=== PATIENT | female | born 1985 | race Caucasian/White ===

== ENCOUNTER 2021-08-29 09:26 | Outpatient (REF) | payer OTHER, SELFPAY ==
[2021-08-29 11:51] LABS: MANUAL DIFF FLAG NO
[2021-08-29 12:17] LABS: Basophils Absolute Auto 0.1 X10*3/uL (0.0-0.2); Basophils Percent Auto 0.8 % (0-2); Eosinophils Absolute Auto 0.1 X10*3/uL (0.0-0.4); Eosinophils Percent Auto 1.2 % (0-4); Hematocrit 39.9 % (37.0-47.0); Imm Gran Abs Auto 0.02 X10*3/uL (0.00-0.03); Imm Gran Pct Auto 0.3 % (0.0-0.4); Lymphocytes Absolute Auto 1.6 X10*3/uL (1.2-4.9); Lymphocytes Percent Auto 26.7 % (20-40); Mean Corpuscular HGB Conc 35.1 g/dl (31.0-35.0); Mean Corpuscular Hemoglobin 31.9 pg (27.0-33.0); Mean Corpuscular Volume 90.9 fL (80.0-98.0); Mean Platelet Volume 10.2 fL (9.4-12.3); Monocytes Absolute Auto 0.4 X10*3/uL (0.1-1.2); Neutrophils Absolute Auto 3.8 x10*3/uL (2.0-8.3); Platelet Count 253 X10*3/uL (160-400); Red Blood Count 4.39 X10*6/uL (4.20-5.50); Red Cell Distribution Width 11.7 % (11.0-16.0)
[2021-08-29 12:35] LABS: Alanine Aminotransferase 27 U/L (0-31); Albumin Level 4.1 g/dL (3.5-5.0); Alkaline Phosphatase 107 U/L (39-117); Anion Gap 12 (12-20); Aspartate Amino Transferase 18 U/L (5-31); Bilirubin Total 0.2 mg/dL (0.0-1.0); Blood Urea Nitrogen 11 mg/dL (9-16); C Reactive Protein 0.17 mg/dL (< or = 0.50); Calcium 9.8 mg/dL (8.4-10.2); Carbon Dioxide 26 mmol/L (22-29); Chloride 109 mmol/L (96-108); Estimated Glomerular Filt Rate > 60; Glucose Random 107 mg/dL (60-115); Potassium 4.2 mmol/L (3.3-5.1); Sodium 143 mmol/L (135-145); Total Protein 6.8 g/dL (6.5-8.0)
[2021-08-29 12:52] LABS: Erythrocyte Sedimentation Rate 12 MM/HR (0-20)
[2021-08-29 12:54] LABS: Creatinine Urine 141.81 mg/dL; Microalbum/Creatinine Ratio Ur 4.2 ug/mg cr
[2021-08-29 12:58] LABS: TSH reflex Free T4 0.65 uIU/mL (0.32-4.0)
== END 2021-08-29 09:27 | disposition home or self-care (01) ==
LOC: HO.LAB 09:26
PROVIDERS: Visit Provider Internal Medicine Rheumatology
DX: M35.2 Behcet's disease (principal); R63.5 Abnormal weight gain; Z79.899 Other long term (current) drug therapy
CPT/HCPCS: 36415; 80053; 82043; 84443; 85025; 85652; 86140; 99212

== ENCOUNTER 2021-10-05 14:43 | Emergency (ER) | payer OTHER, SELFPAY ==
--- NOTE | 2021-10-05 | ECG_ITS ---
Test Reason : CHEST PAIN Blood Pressure : / mmHG Vent. Rate : 086 BPM Atrial Rate : 086 BPM P-R Int : 130 ms QRS Dur : 090 ms QT Int : 368 ms P-R-T Axes : 018 -02 004 degrees QTc Int : 440 ms Normal sinus rhythm Normal ECG No previous ECGs available Referred By: Generic ED Physician Electronically Signed By:Jerel Tracy
[2021-10-05 14:46] VITALS: BP 145/88; PULSE 85; RESP 20; TEMP 36.3; O2SAT 95; BMI 41.0
[2021-10-05 15:13] LABS: MANUAL DIFF FLAG NO
[2021-10-05 15:19] LABS: Basophils Percent Auto 0.7 % (0-2); Eosinophils Absolute Auto 0.3 X10*3/uL (0.0-0.4); Eosinophils Percent Auto 4.5 % (0-4); Hematocrit 39.6 % (37.0-47.0); Imm Gran Abs Auto 0.01 X10*3/uL (0.00-0.03); Imm Gran Pct Auto 0.2 % (0.0-0.4); Lymphocytes Absolute Auto 1.8 X10*3/uL (1.2-4.9); Lymphocytes Percent Auto 29.5 % (20-40); Mean Corpuscular HGB Conc 35.4 g/dl (31.0-35.0); Mean Corpuscular Hemoglobin 31.8 pg (27.0-33.0); Mean Platelet Volume 9.9 fL (9.4-12.3); Monocytes Absolute Auto 0.3 X10*3/uL (0.1-1.2); Monocytes Percent Auto 5.6 % (2-11); Neutrophils Absolute Auto 3.6 x10*3/uL (2.0-8.3); Neutrophils Percent Auto 59.5 % (45-73); Platelet Count 238 X10*3/uL (160-400); Red Cell Distribution Width 11.9 % (11.0-16.0)
[2021-10-05 15:32] LABS: Anion Gap 11 (12-20); Blood Urea Nitrogen 14 mg/dL (9-16); Calcium 9.3 mg/dL (8.4-10.2); Carbon Dioxide 26 mmol/L (22-29); Chloride 107 mmol/L (96-108); Estimated Glomerular Filt Rate > 60; Glucose Random 147 mg/dL (60-115); Potassium 3.7 mmol/L (3.3-5.1); Sodium 140 mmol/L (135-145)
[2021-10-05 15:34] LABS: Troponin-I High Sensitivity < 3.5 ng/L (<3.5-17.0)
== END 2021-10-05 20:14 | disposition left against medical advice (07) ==
LOC: HO.ED 20:12
PROVIDERS: Emergency Provider Emergency Medicine
DX: R42 Dizziness and giddiness (principal); I10 Essential (primary) hypertension; R20.2 Paresthesia of skin; F17.210 Nicotine dependence, cigarettes, uncomplicated
CPT/HCPCS: 36415; 80048; 84484; 85025; 93005; 99283

== ENCOUNTER → 2021-12-05 09:05 | Outpatient (BNVA) | payer OTHER, SELFPAY | PROVIDERS: PCP Internal Medicine; Visit Provider Internal Medicine Rheumatology | DX: M35.2 Behcet's disease (principal); Z79.899 Other long term (current) drug therapy | CPT/HCPCS: 99212 ==

== ENCOUNTER 2022-10-22 21:14 | Emergency (ER) | payer OTHER, SELFPAY ==
[2022-10-22 21:28] VITALS: BP 120/92; BP 129/70; PULSE 75; PULSE 95; RESP 16; TEMP 36.4; O2SAT 95; BMI 37.6
[2022-10-22 21:32] VITALS: BP 129/70; PULSE 75; RESP 16; TEMP 36.4; O2SAT 95
--- NOTE | 2022-10-22 21:34 | PC.NURSE ---
Pt presents to ER via EMS after an accidental overdose. 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 Pt does not have a primary care or orthopedic doctor at this time and did not have pain medications. Pt purchased medication from the street. Pt was told pill was 30mg percocet, which she cut in half and took. Pt stated her normal dose of percocet would be 5mg. Pt also self medicates with cannabis, denies other drug use. After pt took medication, she became flushed, lightheaded, and nauseas. Pt remembers her boyfriend stating she didn't look well then pt lost consciousness while in bed, denies headstrike. PD administered 4mg narcan IN, and rescue breathing. Pt woke up, A&Ox4, GCS 15, with warm, dry skin. Pt presented to ED A&Ox4, GCS 15. Pt is speaking in full sentences, respirations are even. Pt does say she is nauseas and likely dehydrated. Pt resting in bed at this time, waiting ED provider.
[2022-10-22] MEDS: LORazepam 1 MG TABLET PO (21:54)
[2022-10-22] MEDS: Naloxone HCl Nasal TAKE HOME 4 MG SPRAY 8 MG NOSTRILALT (21:54)
[2022-10-22] MEDS: Ondansetron ODT 4 MG TAB.RAPDIS TRANSLINGU (21:54)
--- NOTE | 2022-10-22 21:55 | ED.OVERDOSE ---
HPI - Overdose General Chief Complaint: Overdose Stated Complaint: OVERDOSE 4MG NARCAN Time Seen by Provider: 10/22/22 21:16 Source: patient Mode of arrival: ambulatory Limitations: no limitations History of Present Illness HPI Narrative: chronic pain thought she was taking 5mg of oxycodone off the street but it could have been 15 or 30mg oxycodone overdose given 4mg narcan with good response complaint: accidental overdose Onset (ago): minute(s) (just prior to arrival ) Intent: other (pain control) Context: Accidental Overdose: other (pain control) Treatments Prior to Arrival: narcan (4mg) Related Data Home Medications Medication Instructions Recorded Confirmed cetirizine 10 mg tablet (Zyrtec) 10 mg PO DAILY 08/29/21 12/05/21 ibuprofen 800 mg tablet 800 mg PO BID 08/29/21 12/05/21 Previous Rx's Medication Instructions Recorded colchicine (gout) 0.6 mg tablet 0.6 mg PO DAILY #30 tabs 12/05/21 hydroxychloroquine 200 mg tablet 200 mg PO BID #60 tabs 12/05/21 buprenorphine 2 mg-naloxone 0.5 mg 1 film buccal BID PRN pain #6 ea 10/22/22 sublingual film (Suboxone) Allergies Allergy/AdvReac Type Severity Reaction Status Date / Time lactose [LACTOSE] Allergy Intermediate STOMACH Unverified 12/05/21 09:11 UPSET environmental allergies Allergy Nasal Verified 10/22/22 21:28 congestion Review of Systems Review of Systems: Constitutional : No Fever, No Chills ENT/Mouth : No Ear Pain, No Nasal Congestion, No sore throat Eyes: No Eye Pain, No Swelling, No Redness Cardiovascular : No Chest Pain, No SOB Respiratory : No Cough, No Sputum, No Dyspnea Gastrointestinal : pos Nausea, No Vomiting, No Diarrhea, No Hematochezia, No Melena Genitourinary : No Dysuria, No Urinary Frequency, No Hematuria Musculoskeletal : No Myalgias, pos joint pain Skin : No Skin Lesions, No rash Neuro : No Weakness, No Numbness, No Paresthesias, No Dizziness, No Headache Psych : positive Anxiety, no Depression, no SI/HI Heme/Lymph: No Lymphadenopathy Endocrine : No Polyuria, No Polydipsia All other systems reviewed and are negative PMFSH Past Medical History Attestation statement: The following information was validated with the patient. Medical History Asthma Behcet's disease Depression Social History Social History Household Members: Family Housing: Apartment Are you a primary plant health care technician to a significant other at home: No Do you presently have visiting nurse or other home services: No Alcohol intake: current Alcohol intake frequency: a few times a month Patient Tobacco Use Status: Current everyday Tobacco user Tobacco use type: Cigarette Cigarettes Per Day: 8 Years Smoked: since age 13 Smoked in Last 30 Days: Yes e-Cigarette/Vaping Use: Never Used Use of substances other than those prescribed or required for medical reasons: Yes Substance Use Type: Marijuana Substance Use Frequency: Daily Advance Directives: No Advance Directives Information Provided: No Patient : No service: No Current occupational status: employed 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 Oriented X3. No acute distress. tearful, anxious Eyes: Pupils equal, round and reactive to light. ENT: Pharynx normal. Neck: Normal inspection. Neck supple. CVS: Normal heart rate and rhythm. Pulses normal. Respiratory: No respiratory distress. Breath sounds normal. Abdomen: Soft and nontender. Skin: Skin warm and dry. Normal skin color. Normal skin turgor. Extremities: No lower extremity edema. No calf ttp Neuro: Oriented X 3. No motor deficit. No sensory deficit. Course Course Course Narrative: feels better 2+ hours no need for repeat narcan stable for DC. has narcan to go home with plan to follow up with [facility]. Medications Administered Discontinued Medications Generic Name Dose Route Start Last Admin Trade Name Freq PRN Reason Stop Dose Admin Lorazepam 1 mg 10/22/22 21:46 10/22/22 21:54 Lorazepam 1 Mg Tablet PO 10/22/22 21:47 1 mg ONCE ONE Administration Naloxone HCl 8 mg 10/22/22 21:46 10/22/22 21:54 Naloxone Hcl Nasal Take Home 4 Mg [place] NOSTRILALT 10/22/22 21:47 8 mg ONCE ONE Administration Ondansetron HCl 4 mg 10/22/22 21:46 10/22/22 21:54 Ondansetron Odt 4 Mg Tab.Elinor KENDRICK 10/22/22 21:47 4 mg ONCE ONE Administration Medical Decision Making Medical Decision Making MDM Narrative: 37 yo female with Behcet, chronic pain here with accidental overdose deals with chronic pain in R shoulder and tonight it was worse than usual - took what she thought was 5mg oxycodone off street and thinks it was 30 or 15 and overdosed - passed out no trauma given 4mg narcan with good response. she would be interested in some form of treatment at [facility] so that this does not happen again. she would consider suboxone for pain so she does not overdose again. I can refer her and start her on a small Rx to go home with starting tomorrow since she rarely uses it until she gets appointment. Differential Diagnosis Differential Diagnoses: The differential diagnosis associated with the presentation includes overdose, opiate dependence, chronic pain Admission/Observation Consideration of admission/observation: Escalation of care including admission/observation considered no need for repeat narcan can be sent home with take home narcan plan to follow up in [facility] Independent Historian Clinical information obtained from an independent historian. History obtained from or confirmed by: EMS External Record Review External record reviewed: Office record Prescription Management I considered prescription management with: Pain Medication (suboxone) and Other Social Determinants Patient?s care significantly limited by Social Determinants of Health including: Other Social Determinant of Health Discharge Plan Discharge Clinical Impression: Drug overdose Patient Disposition: Home, Self-Care Instructions: Adult Overdose (ED) Additional Instructions: carry narcan with you do not start suboxone for 24 hours you will precipitate withdrawal - follow up with [facility] as soon as possible. return for numbness, weakness, confusion, chest pain or trouble breathing. Prescriptions: New buprenorphine-naloxone [Suboxone] 2-0.5 mg film 1 film buccal BID PRN (Reason: pain) Qty: 6 0RF Rx Instructions: place 1 strip/tab under (each) side of tongue No Action ibuprofen 800 mg tablet 800 mg PO BID cetirizine [Zyrtec] 10 mg tablet 10 mg PO DAILY hydroxychloroquine 200 mg tablet 200 mg PO BID Qty: 60 1RF colchicine (gout) 0.6 mg tablet 0.6 mg PO DAILY Qty: 30 5RF Referrals: Martha Warren CNP [Nurse Practitioner] - (call tomorrow for any provider in group )
== END 2022-10-22 23:42 | disposition home or self-care (01) ==
PROVIDERS: Emergency Provider Emergency Medicine
DX: T40.2X1A Poisoning by other opioids, accidental (unintentional), initial encounter (principal); Y92.9 Unspecified place or not applicable; F17.210 Nicotine dependence, cigarettes, uncomplicated; Z71.6 Tobacco abuse counseling; Z79.899 Other long term (current) drug therapy
CPT/HCPCS: 99283; 99285

== ENCOUNTER 2022-10-26 17:25 | Inpatient (IN) | payer OTHER, SELFPAY ==
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
--- NOTE | 2022-10-26 18:27 | ECG_ITS ---
Test Reason : POLYSUB Blood Pressure : / mmHG Vent. Rate : 086 BPM Atrial Rate : 086 BPM P-R Int : 124 ms QRS Dur : 084 ms QT Int : 378 ms P-R-T Axes : 041 008 032 degrees QTc Int : 452 ms Normal sinus rhythm with sinus arrhythmia Normal ECG When compared with ECG of 05-OCT-2021 14:50, No significant change was found Referred By: Angel Champion Electronically Signed By:Jerel Tracy
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
--- NOTE | 2022-10-26 18:39 | MHC.EDTECH ---
tim pT for EKG but I was inform by another staff she went to the pod .
[2022-10-26 18:43] VITALS: BP 151/114; PULSE 130; RESP 22; TEMP 36.6; O2SAT 97; BMI 38.8
[2022-10-26 19:16] LABS: MANUAL DIFF FLAG NO
[2022-10-26 19:19] LABS: Basophils Absolute Auto 0.1 X10*3/uL (0.0-0.2); Basophils Percent Auto 0.6 % (0-2); Eosinophils Percent Auto 0.3 % (0-4); Hematocrit 42.7 % (37.0-47.0); Hemoglobin 15.3 g/dl (12.0-16.0); Imm Gran Abs Auto 0.03 X10*3/uL (0.00-0.03); Imm Gran Pct Auto 0.3 % (0.0-0.4); Lymphocytes Absolute Auto 2.1 X10*3/uL (1.2-4.9); Lymphocytes Percent Auto 19.7 % (20-40); Mean Corpuscular HGB Conc 35.8 g/dl (31.0-35.0); Mean Corpuscular Hemoglobin 32.2 pg (27.0-33.0); Mean Corpuscular Volume 89.9 fL (80.0-98.0); Mean Platelet Volume 9.9 fL (9.4-12.3); Monocytes Absolute Auto 0.8 X10*3/uL (0.1-1.2); Monocytes Percent Auto 7.4 % (2-11); Neutrophils Absolute Auto 7.5 x10*3/uL (2.0-8.3); Neutrophils Percent Auto 71.7 % (45-73); Platelet Count 290 X10*3/uL (160-400); Red Blood Count 4.75 X10*6/uL (4.20-5.50); Red Cell Distribution Width 12.1 % (11.0-16.0); White Blood Count 10.4 X10*3/uL (4.8-10.8)
[2022-10-26 19:43] LABS: Acetaminophen LAB < 17 mcg/mL (<30); Salicylate < 5.0 mg/dL (15-30)
[2022-10-26 19:43] LABS: Alanine Aminotransferase 18 U/L (0-31); Albumin Level 4.3 g/dL (3.5-5.0); Alkaline Phosphatase 102 U/L (39-117); Anion Gap 16 (12-20); Aspartate Amino Transferase 16 U/L (5-31); Bilirubin Total 0.6 mg/dL (0.0-1.0); Blood Urea Nitrogen 15 mg/dL (9-16); Carbon Dioxide 21 mmol/L (22-29); Chloride 106 mmol/L (96-108); Creatinine Clr Calc Pharmacy 126.1; Estimated Glomerular Filt Rate > 60; Ethanol < 10 mg/dL; Glucose Random 146 mg/dL (60-115); Lipase 10 U/L (8-78); Potassium 3.8 mmol/L (3.3-5.1); Sodium 139 mmol/L (135-145); Total Protein 7.9 g/dL (6.5-8.0)
--- NOTE | 2022-10-26 19:57 | PC.NURSE ---
Pt alert and oriented calm and cooperative. Mother in law visiting.
[2022-10-26 22:43] LABS: Appearance Urine Clear; Color Urine Yellow; Glucose Urine UA Negative (Negative); Leukocyte Esterase Urine Trace (Negative); Nitrite Urine Negative (Negative); Specific Gravity - Urine 1.025 (1.005-1.025); UMIC TRIGGER UACC YES; Urine Blood Negative (Negative); Urine Ketones 15 mg/dL (Negative); Urine Protein 30 (1+) mg/dL (Neg-Trace)
[2022-10-26 22:48] LABS: Bacteria Urine 1+ (None Seen); RBC Urine 0-2 /HPF (0-2); WBC Urine 0-5 /HPF (0-5)
[2022-10-26 22:51] LABS: Amphetamine Screen Urine Not Detected (Not Detect); Barbiturates, Urine Not Detected (Not Detect); Benzodiazepines Screen Urine Not Detected (Not Detect); Cannabinoid Screen Urine POSITIVE (Not Detect); Cocaine Screen Urine POSITIVE (Not Detect); Fentanyl, urine POSITIVE (Not Detect); Opiate Screen Urine Not Detected (Not Detect); Phencyclidine Screen Urine Not Detected (Not Detect)
--- NOTE | 2022-10-27 03:18 | PC.NURSE ---
Pt ambulated with a steady gait. Pt requested and given blanket and pillow. Plan of care ongoing.
[2022-10-27 03:27] VITALS: BP 107/66; PULSE 69; RESP 17; TEMP 36.6; O2SAT 97
[2022-10-27] MEDS: Nicotine 21 MG PATCH.TD24 TRANSDERMA (10:35)
[2022-10-27 19:13] VITALS: BP 111/75; PULSE 93; RESP 18; TEMP 36.4; O2SAT 98
--- NOTE | 2022-10-27 19:58 | PC.NURSE ---
assumed care of patient at 1900 pt resting comfortably on stretcher in no apparent distress. will ctm
[2022-10-28 04:28] VITALS: BP 124/76; PULSE 89; RESP 18; TEMP 36.5; O2SAT 98
--- NOTE | 2022-10-28 06:01 | PC.NURSE ---
pt continues to rest comfortably on stretcher , respirations even and unlabored pt in no apparent distress. needs met and pt offers no current complaints
[2022-10-28] MEDS: Nicotine 21 MG PATCH.TD24 TRANSDERMA (07:08)
[2022-10-28 09:00] LABS: COVID-19 Test Negative (Negative); IDNOW Serial# 6674DD1D
--- NOTE | 2022-10-28 09:43 | PHA.MEDREC ---
Pharmacy Consult ? Medication Reconciliation Pharmacy has completed the medication reconciliation. Spoke with patient to confirm medications. She was prescribed suboxone 1 film BID prn however patient has only taken 1 dose so far and used 1/2 film only.
[2022-10-28 17:05] VITALS: BP 132/91; PULSE 94; RESP 18; TEMP 36.7; O2SAT 97
[2022-10-28 20:15] VITALS: BP 130/80; PULSE 68; RESP 18; TEMP 36.6; O2SAT 98
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
[2022-10-29 08:00] VITALS: BP 122/81; PULSE 60; RESP 16; TEMP 36.4; O2SAT 99
[2022-10-29] MEDS: Nicotine 21 MG PATCH.TD24 TRANSDERMA (08:59)
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
[2022-10-29 09:17] LABS: Estimated Average Glucose 91 mg/dL; Hemoglobin A1c % 4.8 %
[2022-10-29 09:53] LABS: Alanine Aminotransferase 12 U/L (0-31); Albumin Level 3.6 g/dL (3.5-5.0); Alkaline Phosphatase 76 U/L (39-117); Anion Gap 11 (12-20); Aspartate Amino Transferase 13 U/L (5-31); Bilirubin Total 0.4 mg/dL (0.0-1.0); Blood Urea Nitrogen 11 mg/dL (9-16); Calcium 9.1 mg/dL (8.4-10.2); Carbon Dioxide 23 mmol/L (22-29); Chloride 108 mmol/L (96-108); Cholesterol 140 mg/dL; Creatinine Clr Calc Pharmacy 140.1; Estimated Glomerular Filt Rate > 60; Glucose Fasting 93 mg/dL (60-99); HDL Cholesterol 38 mg/dL; LDL Cholesterol Calculated 89 mg/dl; Potassium 3.9 mmol/L (3.3-5.1); Sodium 138 mmol/L (135-145); Total Protein 6.6 g/dL (6.5-8.0); Triglycerides 67 mg/dL
[2022-10-29 10:15] LABS: Thyroid Stimulating Hormone 0.54 uIU/mL (0.32-4.0)
[2022-10-29 10:16] LABS: Folate 13.4 ng/mL (> or = 4.0)
[2022-10-29 21:00] VITALS: BP 157/84; PULSE 84; RESP 16; TEMP 36.5; O2SAT 98
[2022-10-29] MEDS: OXcarbazepine 300 MG TABLET PO (21:00)
[2022-10-29] MEDS: Docusate Sodium 100 MG CAPSULE PO (21:00)
[2022-10-30 08:57] VITALS: BP 127/83; PULSE 62; RESP 18; TEMP 36.7; O2SAT 98
[2022-10-30] MEDS: Nicotine 21 MG PATCH.TD24 TRANSDERMA (09:00)
--- NOTE | 2022-10-30 09:13 | P.PNPSI_ITS ---
Subjective Subjective Date of Service: 10/30/22 Reason For Visit: overdose Subjective Notes: 3 Day Interim History: Reviewed in team and Dr. Hernandez. Patient presents calm today. Does not have rapid or pressured speech. Patient stated, I'm doing a lot better then when I came in. I've been going to all the groups. I'm not interested in PHP. I want to go home and get a utility tractor operator to get my kids back. I want to start looking for work . When discussing substance abuse, pt stated, I want my kids more than using drugs. I might try going to [facility] and AA/NA meetings . Patient denies SI/HI/VH/AH. Medication Compliance: Yes Side effects from medications: No Attending Groups: Yes Review of Systems Constitutional: Reports as per HPI Eyes: Reports as per HPI Reports as per HPI Cardiovascular: Reports as per HPI Respiratory: Reports as per HPI Gastrointestinal: Reports as per HPI Genitourinary: Reports as per HPI Musculoskeletal: Reports as per HPI Skin/Breast: Reports as per HPI Reports as per HPI Psychiatric: Reports as per HPI Endocrine: Reports as per HPI Hematologic/Lymphatic: Reports as per HPI Allergic/Immunologic: Reports as per HPI Mental Status Exam Mental Status Exam Narrative: Pt is alert and oriented; behavior is cooperative and calm; patient is not in distress; dressed in casual attire; mood is described as good ; eye contact appropriate; Speech is normal rate, volume and prosody and not pressured; no psychomotor agitation/retardation present; thought process is organized and goal directed; Thought content is on tx; otherwise pertinent to relevant topics and without any delusional content, paranoid ideations or grandiosity; denies SI/HI. There is no evidence of perceptual disturbance. Patients insight and judgment are fair. Diagnostics Vital Signs (24Hr): Vital Signs - 24 hr 10/29/22 21:00 10/30/22 08:57 Temperature 97.7 F 98.0 F Pulse Rate 84 62 Respiratory Rate 16 18 Blood Pressure 157/84 H 127/83 Pulse Oximetry 98 98 Oxygen Delivery Method Room Air Room Air BMI result Body Mass Index 38.8 Labs 10/26/22 19:12 10/29/22 08:24 Labs: Laboratory Results - last 48 hr 10/29/22 10/29/22 10/29/22 08:24 08:24 08:24 Sodium 138 Potassium 3.9 Chloride 108 Carbon Dioxide 23 Anion Gap 11 L BUN 11 Creatinine 0.72 Estim Creat Clear Calc 140.1 Estimated GFR > 60 Fasting Glucose 93 Estimat Average Glucose 91 Hemoglobin A1c % 4.8 Calcium 9.1 D Total Bilirubin 0.4 AST 13 ALT 12 Alkaline Phosphatase 76 Total Protein 6.6 Albumin 3.6 Triglycerides 67 Cholesterol 140 LDL Cholesterol, Calc 89 HDL Cholesterol 38 Folate 13.4 TSH 0.54 Free T4 1.00 Imaging Radiology Impressions: ITS Impressions Hand X-Ray 10/27/22 11:02 IMPRESSION: Normal right hand. Face CT 10/27/22 11:25 IMPRESSION: 1. No acute intracranial process seen. 2. There is no maxillofacial, nasal or mandibular fracture. Head CT 10/27/22 11:25 IMPRESSION: 1. No acute intracranial process seen. 2. There is no maxillofacial, nasal or mandibular fracture. Medications Medications Current Medications Acetaminophen (Acetaminophen 325 Mg Tablet) 650 mg PO Q6H PRN PRN Reason: Headache/Pain Mild Scale (1-3) Al Hydroxide/Mg Hydroxide (Magnesium Hydrox/Alum Hydrox 30 Ml Oral.Susp) 30 ml PO Q6H PRN PRN Reason: Heartburn/Nausea Albuterol Sulfate (Albuterol Sulfate 90 Mcg 8 Gm Inhaler) 2 puff INHALE Q4H PRN PRN Reason: Shortness Of Breath Or Wheezing Docusate Sodium (Docusate Sodium 100 Mg Capsule) 100 mg PO BID PRN PRN Reason: Constipation Last Admin: 10/29/22 21:00 Dose: 100 mg Hydroxyzine HCl (Hydroxyzine Hcl 25 Mg Tablet) 25 mg PO Q6H PRN PRN Reason: Anxiety Loratadine (Loratadine 10 Mg Tablet) 10 mg PO DAILY PRN PRN Reason: Allergy Symptoms Magnesium Hydroxide (Milk Of Magnesia 30 Ml Oral.Susp) 30 ml PO DAILY PRN PRN Reason: Constipation Nicotine (Nicotine 21 Mg Patch.Td24) 21 mg TRANSDERMA DAILY [facility] Last Admin: 10/30/22 09:00 Dose: 21 mg Nicotine Polacrilex (Nicotine Polacrilex 2 Mg Gum) 4 mg BUCCAL Q2H PRN PRN Reason: Nicotine Cravings Oxcarbazepine (Oxcarbazepine 300 Mg Tablet) 300 mg PO BEDTIME [facility] Last Admin: 10/29/22 21:00 Dose: 300 mg Trazodone HCl (Trazodone Hcl 50 Mg Tablet) 50 mg PO BEDTIME MRX1 PRN PRN Reason: Insomnia Allergies Allergies Allergy/AdvReac Type Severity Reaction Status Date / Time environmental allergies Allergy Nasal Verified 10/22/22 21:28 congestion Assessment & Plan Assessment & Plan (1) MDD (major depressive disorder), recurrent episode: Status: Acute Code(s): F33.9 - Major depressive disorder, recurrent, unspecified (2) Behcet's disease: Status: Acute Code(s): M35.2 - Behcet's disease Plan Patient is a 37 year old female who self presented to [facility] reporting she was having a mental health crisis and having physical pain. Per crisis report, pt has vasculitis which flares up when she is stressed and recently bought Percocet on the street to help with the pain; it was Fentanyl and she overdosed unintentionally. 911 was called and DCF removed her children from the home. Plan: CV 15 minute safety checks Referral to outpatient psychiatrist Referral to PHP Referral to substance abuse treatment program? Start: Trileptal 300mg PO bedtime 10/30: Patient presents calm today. Does not have rapid or pressured speech. Patient stated, I'm doing a lot better then when I came in. I've been going to all the groups. I'm not interested in PHP. I want to go home and get a utility tractor operator to get my kids back. I want to start looking for work . When discussing substance abuse, pt stated, I want my kids more than using drugs. I might try going to [facility] [place] and AA/NA meetings . Continue current tx plan. Patient educated on: diagnosis, medication risk/benefits, substance abuse and therapeutic strategies Informed Consent: understands Reason for continued inpatient stay Substantial Risk for: med/psych decompensation Time Spent With Patient Time: Total time managing care of this patient today _30___ minutes.
[2022-10-30 19:40] VITALS: BP 143/81; PULSE 83; RESP 18; TEMP 36.2; O2SAT 100
[2022-10-30] MEDS: OXcarbazepine 300 MG TABLET PO (20:20)
[2022-10-30] MEDS: Docusate Sodium 100 MG CAPSULE PO (20:20)
[2022-10-31 07:00] VITALS: BMI 36.1
[2022-10-31 08:57] VITALS: BP 126/88; PULSE 74; RESP 18; TEMP 36.7; O2SAT 100
[2022-10-31] MEDS: Nicotine 21 MG PATCH.TD24 TRANSDERMA (08:59)
--- NOTE | 2022-10-31 09:17 | HO.PSYCHPN ---
Subjective Subjective Date of Service: 10/31/22 Reason For Visit: overdose Subjective Notes: 3 Day Interim History: Reviewed in team and Dr. Hernandez. Patient reports feeling fine today. Patient stated, I'm looking forward to going home and working on my resume. I'm going to meet with a electronics mechanic apprentice and also my therapist. I'm going to do what I can to get my children back . Patient reports she does not have any urges to use or suicidal thoughts . Patient denies SI/HI/VH/AH. Medication Compliance: Yes Side effects from medications: No Attending Groups: Yes Review of Systems Constitutional: Reports as per HPI Eyes: Reports as per HPI Reports as per HPI Cardiovascular: Reports as per HPI Respiratory: Reports as per HPI Gastrointestinal: Reports as per HPI Genitourinary: Reports as per HPI Musculoskeletal: Reports as per HPI Skin/Breast: Reports as per HPI Reports as per HPI Psychiatric: Reports as per HPI Endocrine: Reports as per HPI Hematologic/Lymphatic: Reports as per HPI Allergic/Immunologic: Reports as per HPI Mental Status Exam Mental Status Exam Narrative: Pt is alert and oriented; behavior is cooperative and calm; patient is not in distress; dressed in casual attire; mood is described as fine ; eye contact appropriate; Speech is normal rate, volume and prosody and not pressured; no psychomotor agitation/retardation present; thought process is organized and goal directed; Thought content is on tx; otherwise pertinent to relevant topics and without any delusional content, paranoid ideations or grandiosity; denies SI/HI. There is no evidence of perceptual disturbance. Patients insight and judgment are fair. Diagnostics Vital Signs (24Hr): Vital Signs - 24 hr 10/30/22 19:40 10/31/22 08:57 Temperature 97.2 F 98.0 F Pulse Rate 83 74 Respiratory Rate 18 18 Blood Pressure 143/81 H 126/88 Pulse Oximetry 100 100 Oxygen Delivery Method Room Air Room Air BMI result Body Mass Index 38.8 Labs 10/26/22 19:12 10/29/22 08:24 Labs: Laboratory Results - last 48 hr 10/29/22 10/29/22 10/29/22 08:24 08:24 08:24 Sodium 138 Potassium 3.9 Chloride 108 Carbon Dioxide 23 Anion Gap 11 L BUN 11 Creatinine 0.72 Estim Creat Clear Calc 140.1 Estimated GFR > 60 Fasting Glucose 93 Estimat Average Glucose 91 Hemoglobin A1c % 4.8 Calcium 9.1 D Total Bilirubin 0.4 AST 13 ALT 12 Alkaline Phosphatase 76 Total Protein 6.6 Albumin 3.6 Triglycerides 67 Cholesterol 140 LDL Cholesterol, Calc 89 HDL Cholesterol 38 Folate 13.4 TSH 0.54 Free T4 1.00 Imaging Radiology Impressions: ITS Impressions Hand X-Ray 10/27/22 11:02 IMPRESSION: Normal right hand. Face CT 10/27/22 11:25 IMPRESSION: 1. No acute intracranial process seen. 2. There is no maxillofacial, nasal or mandibular fracture. Head CT 10/27/22 11:25 IMPRESSION: 1. No acute intracranial process seen. 2. There is no maxillofacial, nasal or mandibular fracture. Medications Medications Current Medications Acetaminophen (Acetaminophen 325 Mg Tablet) 650 mg PO Q6H PRN PRN Reason: Headache/Pain Mild Scale (1-3) Al Hydroxide/Mg Hydroxide (Magnesium Hydrox/Alum Hydrox 30 Ml Oral.Susp) 30 ml PO Q6H PRN PRN Reason: Heartburn/Nausea Albuterol Sulfate (Albuterol Sulfate 90 Mcg 8 Gm Inhaler) 2 puff INHALE Q4H PRN PRN Reason: Shortness Of Breath Or Wheezing Docusate Sodium (Docusate Sodium 100 Mg Capsule) 100 mg PO BID PRN PRN Reason: Constipation Last Admin: 10/30/22 20:20 Dose: 100 mg Hydroxyzine HCl (Hydroxyzine Hcl 25 Mg Tablet) 25 mg PO Q6H PRN PRN Reason: Anxiety Loratadine (Loratadine 10 Mg Tablet) 10 mg PO DAILY PRN PRN Reason: Allergy Symptoms Magnesium Hydroxide (Milk Of Magnesia 30 Ml Oral.Susp) 30 ml PO DAILY PRN PRN Reason: Constipation Nicotine (Nicotine 21 Mg Patch.Td24) 21 mg TRANSDERMA DAILY [facility] Last Admin: 10/31/22 08:59 Dose: 21 mg Nicotine Polacrilex (Nicotine Polacrilex 2 Mg Gum) 4 mg BUCCAL Q2H PRN PRN Reason: Nicotine Cravings Oxcarbazepine (Oxcarbazepine 300 Mg Tablet) 300 mg PO BEDTIME [facility] Last Admin: 10/30/22 20:20 Dose: 300 mg Trazodone HCl (Trazodone Hcl 50 Mg Tablet) 50 mg PO BEDTIME MRX1 PRN PRN Reason: Insomnia Allergies Allergies Allergy/AdvReac Type Severity Reaction Status Date / Time environmental allergies Allergy Nasal Verified 10/22/22 21:28 congestion Assessment & Plan Assessment & Plan (1) MDD (major depressive disorder), recurrent episode: Status: Acute Code(s): F33.9 - Major depressive disorder, recurrent, unspecified (2) Behcet's disease: Status: Acute Code(s): M35.2 - Behcet's disease Plan Patient is a 37 year old female who self presented to [facility] reporting she was having a mental health crisis and having physical pain. Per crisis report, pt has vasculitis which flares up when she is stressed and recently bought Percocet on the street to help with the pain; it was Fentanyl and she overdosed unintentionally. 911 was called and DCF removed her children from the home. Plan: CV 15 minute safety checks Referral to outpatient psychiatrist Referral to PHP Referral to substance abuse treatment program? Trileptal 300mg PO bedtime 10/30: Patient presents calm today. Does not have rapid or pressured speech. Patient stated, I'm doing a lot better then when I came in. I've been going to all the groups. I'm not interested in PHP. I want to go home and get a electronics mechanic apprentice to get my kids back. I want to start looking for work . When discussing substance abuse, pt stated, I want my kids more than using drugs. I might try going to [facility] and AA/NA meetings . Continue current tx plan. 10/31: Patient reports feeling fine today. Patient stated, I'm looking forward to going home and working on my resume. I'm going to meet with a electronics mechanic apprentice and also my therapist. I'm going to do what I can to get my children back . Patient reports she does not have any urges to use or suicidal thoughts . Patient denies SI/HI/VH/AH. Pt will discharge tomorrow on 3 day. Patient educated on: diagnosis, medication risk/benefits, substance abuse and therapeutic strategies Informed Consent: understands Reason for continued inpatient stay Substantial Risk for: stable for discharge Time Spent With Patient Time: Total time managing care of this patient today _30___ minutes.
[2022-10-31 19:40] VITALS: BP 123/83; PULSE 64; RESP 18; TEMP 36.3; O2SAT 98
[2022-10-31] MEDS: OXcarbazepine 300 MG TABLET PO (20:56)
[2022-11-01] MEDS: Nicotine 21 MG PATCH.TD24 TRANSDERMA (07:53)
[2022-11-01 08:25] VITALS: BP 131/76; PULSE 70; RESP 16; TEMP 36.8; O2SAT 98
--- NOTE | 2022-11-01 08:55 | P.DS_ITS ---
DS: Providers Provider Date of Service: 11/01/22 Date of admission: 10/28/22 16:14 Date of discharge: 11/01/22 Primary care physician: Unknown Physician Admitting clinician: Earlene Alaniz Attending physician on admission: Alfredo Hernandez Attending physician on discharge: Devaughn Arauz Discharging clinician: Earlene Alaniz DS: Diagnosis Discharge Diagnosis (1) MDD (major depressive disorder), recurrent episode: Status: Acute (2) Behcet's disease: Status: Acute DS: Medications Discharge Medications Home Medications: Home Medications Medication Instructions Recorded Confirmed cetirizine 10 mg tablet (Zyrtec) 10 mg PO DAILY PRN Allergy Symptoms 08/29/21 10/28/22 ibuprofen 800 mg tablet 800 mg PO BID PRN Pain 08/29/21 10/28/22 albuterol sulfate 90 mcg/actuation 2 puff inhalation Q4-6H PRN 10/28/22 10/28/22 aerosol inhaler (Ventolin HFA) Shortness Of Breath Or Wheezing buprenorphine 2 mg-naloxone 0.5 mg 0.5 film buccal BID PRN pain 10/28/22 10/28/22 sublingual film (Suboxone) nicotine 14 mg/24 hr daily 1 patch topical DAILY PRN Nicotine 10/28/22 10/28/22 transdermal patch Cravings Previous Rx's Medication Instructions Recorded oxcarbazepine 300 mg tablet 300 mg PO BEDTIME 30 days #30 tabs 11/01/22 Mental Status Exam Mental Status Exam Narrative: Pt is alert and oriented; behavior is cooperative, friendly and calm; patient is not in distress; dressed in casual attire; mood is described as good ; eye contact appropriate; Speech is normal rate, volume and prosody and not pressured; no psychomotor agitation/retardation present; thought process is organized and goal directed; Thought content is on tx; otherwise pertinent to relevant topics and without any delusional content, paranoid ideations or grandiosity; denies SI/HI. There is no evidence of perceptual disturbance. Patients insight and judgment are fair. Data Data Completed and Pending Completed studies during hospitalization [Text1]: 10/26/22 10/26/22 10/26/22 19:11 19:12 19:12 WBC 10.4 RBC 4.75 Hgb 15.3 Hct 42.7 MCV 89.9 MCH 32.2 MCHC 35.8 H RDW 12.1 Plt Count 290 MPV 9.9 Immature Gran % (Auto) 0.3 Neut % (Auto) 71.7 Lymph % (Auto) 19.7 L Dickinson % (Auto) 7.4 Eos % (Auto) 0.3 Baso % (Auto) 0.6 Lymph # (Auto) 2.1 Dickinson # (Auto) 0.8 Eos # (Auto) 0.0 Baso # (Auto) 0.1 Abs Immat Gran (auto) 0.03 Absolute Neuts (auto) 7.5 Absolute Nucleated RBC 0.000 Nucleated RBC % (auto) 0.0 Sodium 139 Potassium 3.8 Chloride 106 Carbon Dioxide 21 L Anion Gap 16 BUN 15 Creatinine 0.80 Estim Creat Clear Calc 126.1 Estimated GFR > 60 Random Glucose 146 H Fasting Glucose Estimat Average Glucose Hemoglobin A1c % Calcium 10.0 D Total Bilirubin 0.6 AST 16 ALT 18 Alkaline Phosphatase 102 Total Protein 7.9 Albumin 4.3 Triglycerides Cholesterol LDL Cholesterol, Calc HDL Cholesterol Lipase 10 Folate TSH Free T4 Urine Color Urine Appearance Urine pH Ur Specific [place] Urine Protein Urine Glucose (UA) Urine Ketones Urine Blood Urine Nitrite Ur Leukocyte Esterase Urine RBC Urine WBC Ur Squamous Epith Cells Urine Bacteria Hyaline Casts Salicylates < 5.0 L Urine Opiates Screen Urine Fentanyl Screen Acetaminophen < 17 Ur Barbiturates Screen Ur Phencyclidine Scrn Ur Amphetamines Screen U Benzodiazepines Scrn Urine Cocaine Screen U Marijuana (THC) Screen Ethyl Alcohol < 10 COVID-19 ([facility]) COVID-19 Clin Com 10/26/22 10/26/22 10/28/22 22:28 22:28 08:27 WBC RBC Hgb Hct MCV MCH MCHC RDW Plt Count MPV Immature Gran % (Auto) Neut % (Auto) Lymph % (Auto) Dickinson % (Auto) Eos % (Auto) Baso % (Auto) Lymph # (Auto) Dickinson # (Auto) Eos # (Auto) Baso # (Auto) Abs Immat Gran (auto) Absolute Neuts (auto) Absolute Nucleated RBC Nucleated RBC % (auto) Sodium Potassium Chloride Carbon Dioxide Anion Gap BUN Creatinine Estim Creat Clear Calc Estimated GFR Random Glucose Fasting Glucose Estimat Average Glucose Hemoglobin A1c % Calcium Total Bilirubin AST ALT Alkaline Phosphatase Total Protein Albumin Triglycerides Cholesterol LDL Cholesterol, Calc HDL Cholesterol Lipase Folate TSH Free T4 Urine Color Yellow Urine Appearance Clear Urine pH 6.0 Ur Specific [place] 1.025 Urine Protein 30 (1+) H Urine Glucose (UA) Negative Urine Ketones 15 Urine Blood Negative Urine Nitrite Negative Ur Leukocyte Esterase Trace H Urine RBC 0-2 Urine WBC 0-5 Ur Squamous Epith Cells 6-10 Urine Bacteria 1+ Hyaline Casts 3-5 Salicylates Urine Opiates Screen Not Detected Urine Fentanyl Screen POSITIVE H Acetaminophen Ur Barbiturates Screen Not Detected Ur Phencyclidine Scrn Not Detected Ur Amphetamines Screen Not Detected U Benzodiazepines Scrn Not Detected Urine Cocaine Screen POSITIVE H U Marijuana (THC) Screen POSITIVE H Ethyl Alcohol COVID-19 ([facility]) Negative COVID-19 Clin Com See Note 10/29/22 10/29/22 10/29/22 08:24 08:24 08:24 WBC RBC Hgb Hct MCV MCH MCHC RDW Plt Count MPV Immature Gran % (Auto) Neut % (Auto) Lymph % (Auto) Dickinson % (Auto) Eos % (Auto) Baso % (Auto) Lymph # (Auto) Dickinson # (Auto) Eos # (Auto) Baso # (Auto) Abs Immat Gran (auto) Absolute Neuts (auto) Absolute Nucleated RBC Nucleated RBC % (auto) Sodium 138 Potassium 3.9 Chloride 108 Carbon Dioxide 23 Anion Gap 11 L BUN 11 Creatinine 0.72 Estim Creat Clear Calc 140.1 Estimated GFR > 60 Random Glucose Fasting Glucose 93 Estimat Average Glucose 91 Hemoglobin A1c % 4.8 Calcium 9.1 D Total Bilirubin 0.4 AST 13 ALT 12 Alkaline Phosphatase 76 Total Protein 6.6 Albumin 3.6 Triglycerides 67 Cholesterol 140 LDL Cholesterol, Calc 89 HDL Cholesterol 38 Lipase Folate 13.4 TSH 0.54 Free T4 1.00 Urine Color Urine Appearance Urine pH Ur Specific [place] Urine Protein Urine Glucose (UA) Urine Ketones Urine Blood Urine Nitrite Ur Leukocyte Esterase Urine RBC Urine WBC Ur Squamous Epith Cells Urine Bacteria Hyaline Casts Salicylates Urine Opiates Screen Urine Fentanyl Screen Acetaminophen Ur Barbiturates Screen Ur Phencyclidine Scrn Ur Amphetamines Screen U Benzodiazepines Scrn Urine Cocaine Screen U Marijuana (THC) Screen Ethyl Alcohol COVID-19 ([facility]) COVID-19 Clin Com Imaging Diagnostic Imaging Impressions Hand X-Ray 10/27/22 11:02 IMPRESSION: Normal right hand. Face CT 10/27/22 11:25 IMPRESSION: 1. No acute intracranial process seen. 2. There is no maxillofacial, nasal or mandibular fracture. Head CT 10/27/22 11:25 IMPRESSION: 1. No acute intracranial process seen. 2. There is no maxillofacial, nasal or mandibular fracture. DS: Summary Hospital Course Hospital Course: Patient is a 37 year old female who self presented to [facility] ER reporting she was having a mental health crisis and having physical pain. Per crisis report, pt has vasculitis which flares up when she is stressed and recently bought Percocet on the street to help with the pain; it was Fentanyl and she overdosed unintentionally. 911 was called and DCF removed her children from the home. During admission assessment, pt cooperative and presents with rapid and pressured speech. Patient stated, when DCF took my kids, I spiraled and became suicidal and came to the hospital. I feel very judged by DCF. I took the Percocet, my partner called 911 and they Narcan'd me. I want to fix my life. I want my babies back. I'm not suicidal . Patient denies any withdrawal symptoms. Denies SI/HI/VH/AH. Patient reports she has a therapist (Kasey) at [facility]. Patient reports she would like to try mediation for my mood . T/W discusses risks/benefits of Trileptal. Patient agreed to trial of medication. Patient presents calm today. Does not have rapid or pressured speech. Patient stated, I'm doing a lot better then when I came in. I've been going to all the groups. I'm not interested in PHP. I want to go home and get a production team manager to get my kids back. I want to start looking for work . When discussing substance abuse, pt stated, I want my kids more than using drugs. I might try going to [facility] [place] and AA/NA meetings . Patient reports feeling fine today. Patient stated, I'm looking forward to going home and working on my resume. I'm going to meet with a production team manager and also my therapist. I'm going to do what I can to get my children back . Patient reports she does not have any urges to use or suicidal thoughts . She reports not being sure if she will continue taking medication d/t not liking taking any pills including control . Patient reports she plans on following up with her outpatient providers. Patient denies SI/HI/VH/AH at this time. Pt discharged on [address] Arauz. Time spent discussing smoking cessation with patient: 3 to 10 minutes Status at Discharge Cognitive/behavioral status at discharge: Patient was interviewed prior to discharge and found to be fully oriented and without any SI or HI. Patient has insight and demonstrates good judgment in terms of wanting to pursue treatment. Patient is not in imminent risk of harm to self or others and has a safety plan that includes presenting to the closest ER or calling 911 if feeling unsafe. Patient has been observed closely by nursing and unit staff throughout admission; patient has not engaged in any behaviors that suggest dangerousness to self or others and has demonstrated appropriate behaviors and impulse control. Functional status at discharge: independent ambulation Overall status at discharge: patient is back to baseline Time Spent with Patient Time attestation: Total time managing care of this patient today _30___ minutes. Time spent: Less than 30 minutes Discharge Plan Discharge Anticipated Discharge Date/Time: 11/01/22 11:00 Patient Disposition: Home, Self-Care Discharge Diagnosis: MDD Referrals: [facility] [Other] - 11/08/22 1:00 pm (Therapy intake with Kasey.) [facility] [Provider Group] - 1 Week (Walk In hours Friday through Friday 830am -4 pm) Discharge Medications: New oxcarbazepine 300 mg Tablet 300 mg PO BEDTIME 30 Days Qty: 30 0RF Continued nicotine 14 mg/24 hr patch 24 hour 1 patch topical DAILY PRN (Reason: Nicotine Cravings) albuterol sulfate [Ventolin HFA] 90 mcg/actuation HFA aerosol inhaler 2 puff inhalation Q4-6H PRN (Reason: Shortness Of Breath Or Wheezing) buprenorphine-naloxone [Suboxone] 2-0.5 mg film 0.5 film buccal BID PRN (Reason: pain) Rx Instructions: place 1 strip/tab under (each) side of tongue ibuprofen 800 mg tablet 800 mg PO BID PRN (Reason: Pain) cetirizine [Zyrtec] 10 mg tablet 10 mg PO DAILY PRN (Reason: Allergy Symptoms) Discharge Orders: Discharge Order (Routine); Ordered 11/01/22 Ordered By: Earlene Alaniz Diet: Regular diet Activity on Discharge: As tolerated Stand Alone Forms: Patient Portal Discharge page, Community Support Care Plan Goals: Maintain mood and safe behaviors Take medications as prescribed Continue to pursue sobriety Practice coping skills Continue with outpatient providers and reach out to them as needed Health Concerns: Mood stability and behaviors Sobriety Plan of Treatment: Follow up with your PCP, psychiatric provider and other outpatient providers regarding above concerns Take medications as prescribed Assessment: Patient was interviewed prior to discharge and found to be fully oriented and without any SI or HI. Patient has insight and demonstrates good judgment in terms of wanting to pursue treatment. Patient is not in imminent risk of harm to self or others and has a safety plan that includes presenting to the closest ER or calling 911 if feeling unsafe. Patient has been observed closely by nursing and unit staff throughout admission; patient has not engaged in any behaviors that suggest dangerousness to self or others and has demonstrated appropriate behaviors and impulse control. Discharge Date/Time: 11/01/22 11:20
--- NOTE | 2022-11-01 11:32 | PC.NURSE ---
Michelle is discharged at this time in care of family. She denies ideation, plan or intent to harm self or others. She reports continued generalized pain unchanged from prior to admission.
== END 2022-11-01 11:20 | disposition home or self-care (01) | DRG 751 ==
LOC: HO.ED 10-28 13:10 → HO.PADLT16 10-28 16:22
PROVIDERS: Emergency Medicine; Physician Assistant; Admitting Provider Psychiatry & Neurology Psychiatry; Emergency Provider Emergency Medicine Emergency Medical Services; Responsible Provider Registered Nurse; Visit Provider Psychiatry & Neurology Psychiatry
DX: F33.9 Major depressive disorder, recurrent, unspecified (principal); M35.2 Behcet's disease; R45.851 Suicidal ideations; J45.909 Unspecified asthma, uncomplicated; F17.210 Nicotine dependence, cigarettes, uncomplicated; Z71.6 Tobacco abuse counseling; F11.20 Opioid dependence, uncomplicated; Z20.822 Contact with and (suspected) exposure to COVID-19; Z79.899 Other long term (current) drug therapy
CPT/HCPCS: 36415; 70450; 70486; 73130; 80053; 80061; 80143; 80179; 80307; 81001; 82746; 83036; 83690; 84439; 84443; 85025; 87635; 93005; 99285; S9485

== ENCOUNTER → 2022-10-26 18:27 | Outpatient (BNV) | payer OTHER, SELFPAY | PROVIDERS: Emergency Provider Emergency Medicine Emergency Medical Services; Visit Provider Internal Medicine Cardiovascular Disease | DX: I49.9 Cardiac arrhythmia, unspecified (principal) | CPT/HCPCS: 93010 ==

== ENCOUNTER → 2022-10-28 16:14 | Outpatient (BNV) | payer OTHER, SELFPAY | PROVIDERS: Admitting Provider Psychiatry & Neurology Psychiatry; Emergency Provider Emergency Medicine Emergency Medical Services; Responsible Provider Registered Nurse; Visit Provider Registered Nurse | DX: F33.2 Major depressive disorder, recurrent severe without psychotic features (principal); M35.2 Behcet's disease | CPT/HCPCS: 90792; 99231; 99238 ==

== ENCOUNTER 2022-12-16 10:54 | Outpatient (REF) | payer MEDICAID, SELFPAY ==
[2022-12-16 14:33] LABS: MANUAL DIFF FLAG NO
[2022-12-16 14:45] LABS: Basophils Percent Auto 0.8 % (0-2); Eosinophils Absolute Auto 0.1 X10*3/uL (0.0-0.4); Eosinophils Percent Auto 1.2 % (0-4); Hematocrit 39.7 % (37.0-47.0); Hemoglobin 13.2 g/dl (12.0-16.0); Imm Gran Abs Auto 0.01 X10*3/uL (0.00-0.03); Imm Gran Pct Auto 0.2 % (0.0-0.4); Lymphocytes Absolute Auto 1.4 X10*3/uL (1.2-4.9); Lymphocytes Percent Auto 28.1 % (20-40); Mean Corpuscular HGB Conc 33.2 g/dl (31.0-35.0); Mean Corpuscular Hemoglobin 31.9 pg (27.0-33.0); Mean Corpuscular Volume 95.9 fL (80.0-98.0); Mean Platelet Volume 10.4 fL (9.4-12.3); Monocytes Absolute Auto 0.5 X10*3/uL (0.1-1.2); Monocytes Percent Auto 9.4 % (2-11); Neutrophils Percent Auto 60.3 % (45-73); Platelet Count 268 X10*3/uL (160-400); Red Blood Count 4.14 X10*6/uL (4.20-5.50); White Blood Count 4.9 X10*3/uL (4.8-10.8)
[2022-12-16 15:09] LABS: Alanine Aminotransferase 15 U/L (0-31); Albumin Level 4.1 g/dL (3.5-5.0); Alkaline Phosphatase 94 U/L (39-117); Anion Gap 11 (12-20); Aspartate Amino Transferase 14 U/L (5-31); Bilirubin Total 0.2 mg/dL (0.0-1.0); Blood Urea Nitrogen 12 mg/dL (9-16); Calcium 8.7 mg/dL (8.4-10.2); Carbon Dioxide 23 mmol/L (22-29); Chloride 109 mmol/L (96-108); Cholesterol 169 mg/dL (<200); Estimated Glomerular Filt Rate > 60; Glucose Fasting 100 mg/dL (60-99); HDL Cholesterol 57 mg/dL (>40); LDL Cholesterol Calculated 99 mg/dL (<100); Sodium 139 mmol/L (135-145); Total Protein 6.9 g/dL (6.5-8.0); Triglycerides 68 mg/dL (<150)
[2022-12-16 15:18] LABS: HIV AB/AG Nonreactive (Nonreactive); HIV Num 1 0.07 S/CO (0.00-0.99); ~HepC Num1 0.05 S/CO (0.00-0.79); ~Hepatitis C Antibody Nonreactive (Nonreactive)
[2022-12-16 15:25] LABS: TSH reflex Free T4 0.52 uIU/mL (0.32-4.0)
[2022-12-21 00:13] LABS: VITAMIN D (1,25 OH) D3 37 pg/mL; Vit D (1,25-Dihydroxy) Total 37 pg/mL (18-72); Vitamin D (1,25 OH) D2 <8 pg/mL
== END 2022-12-16 10:55 | disposition home or self-care (01) ==
LOC: HO.CHCLDS 10:54
PROVIDERS: Visit Provider Family Medicine
DX: Z11.4 Encounter for screening for human immunodeficiency virus [HIV] (principal); E66.9 Obesity, unspecified
CPT/HCPCS: 36415; 80053; 80061; 82652; 84443; 85025; 86803; 87389

== ENCOUNTER 2023-01-01 13:57 | Outpatient (AMB) | payer MEDICAID, SELFPAY ==
--- NOTE | 2023-01-01 14:15 | A.OFFVIS_ITS ---
Intake Vital Signs 01/01/23 14:16 Height 5 ft 8 in Weight 248 lb 8 oz BMI 37.8 Blood Pressure Location Lt radial Position Sitting Respiration 18 Pulse 97 Pulse Source Pulse Oximeter Pulse Oximetry (%) 97 Oxygen Delivery Method Room Air Intake Visit Reasons: Polyarthralgia Allergies environmental allergies Allergy (Verified 01/01/23 14:08) Nasal congestion HPI HPI Comments History of Present Illness Details Michelle is a very pleasant 37-year-old female who presents the office today for evaluation management of her chronic joint pain. Patient reports that she has been suffering with all over joint pain related to Behcets disease. She has been evaluated by Rheum in the past, was started on medication regime but reports GI side effects that she could not tolerate so she stopped the medication. She has not been back to see Rheum since, last visit was 12/06. Patient currently being worked up for EDS also. She reports hypermobile joints since she was a child, she used to dislocate her joints as a child and at times it will happen in her sleep. Her most significant joint pain is the right shoulder, she is under the care of [facility], currently attending PT which is helping with ROM. She has scheduled follow up with [facility]. Patient states October of this year she ended up in the ER and then admitted to psych unit at [facility]. She took a pill from her friend that was supposed to be percocet because she was in a lot of pain. Pill was actually illicit fentanyl. Since then her children have been removed and are currently under DCF staying with family. She has been mentally and emotionally struggling, states stress has been making her joint pain much worse. She states Behcets disease causes ulcers of mouth and labia. She can feel them starting, has taken prednisone in the past. 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 of drug Weight gain Social History Household Members: Other Household Members Other:: Boyfriend Housing: House Are you a primary healthcare associate to a significant other at home: No Do you presently have visiting nurse or other home services: No 75 years or older and lives alone: No Alcohol intake: unknown Patient Tobacco Use Status: Current everyday Tobacco user Tobacco use type: Cigarette Cigarette Packs Per Day: 1 Cigarettes Per Day: 20.0 Years Smoked: since age 13 e-Cigarette/Vaping Use: Never Used Second Hand Smoke Exposure: Yes Substance Use Type: Crack/Cocaine, Marijuana and Opiates service: No Current occupational status: employed 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 Answers questions appropriately. Fully engaged in examination. Tearful when speaking about her children and current socioeconomic status Skin: warm, dry, intact HEENT: Normocephalic. Hearing intact. Cardiac: External chest normal in appearance. Respiratory: No cough, audible wheezing or stridor. Abdomen: without gross distension. MS: No obvious swelling or deformities. Able to transition from sit to stand unassisted. Ambulates with bilaterally normal heel strike and toe off Neurological: Oriented to person, place, time and situation. Thought process intact. No gait abnormalities appreciated. Psychiatric: Appropriate mood and affect. Good judgment and insight. Assessment & Plan Assessment & Plan (1) Behcet's disease: Code(s): M35.2 - Behcet's disease (2) Chronic pain: Code(s): G89.29 - Other chronic pain Plan Michelle is a very pleasant 37-year-old female who presented to the office today for evaluation management of her chronic diffuse joint pain. A lengthy discussion was had with patient today regarding options for treatment that we can offer here at [facility], the focus here is interventional pain management including diagnostic injections, steroid injections, nerve blocks, peripheral nerve stimulators and neuromodulation. She is currently under care at [facility] for her right shoulder, therefore no options for injections or interventional treatment offered for right shoulder unless orthopedic surgeons determine they cannot treat her pain. Will try Gabapentin 100mg po TID, will plan to increase to 300mg po TID if patient tolerates well. Patient advised of risks and side effects, she will hold for any worsening mental health. Prednisone 20mg po BID X 7 days for oral and genital ulcer outbreak that patient reports she can feel coming on. Patient has taken in the past and tolerated well. She was advised to call [facility] bill to schedule follow up to discuss medication management. All questions and concerns were answered during the visit. Follow up in 2 weeks to discuss medication, sooner if needed. Medications: New prednisone 20 mg PO BID 14 tabs 0RF gabapentin 100 mg PO TID 14 days 42 caps 0RF Coding Level of Care Code New Pt Level 4 (81573) Diagnoses Behcet's disease M35.2 Chronic pain G89.29
[2023-01-01 14:16] VITALS: PULSE 97; RESP 18; O2SAT 97; BMI 37.8
== END 2023-01-01 15:28 | disposition home or self-care (01) ==
PROVIDERS: PCP Family Medicine; Visit Provider Registered Nurse Emergency
DX: M35.2 Behcet's disease (principal); G89.29 Other chronic pain
CPT/HCPCS: 99204

== ENCOUNTER → 2023-01-01 13:57 | Outpatient (BNVA) | payer MEDICAID, SELFPAY | PROVIDERS: PCP Family Medicine; Visit Provider Registered Nurse Emergency | DX: M35.2 Behcet's disease (principal); G89.29 Other chronic pain | CPT/HCPCS: 99212 ==

== ENCOUNTER 2023-01-10 13:27 | Outpatient (REF) | payer MEDICAID, SELFPAY ==
[2023-01-10 15:03] LABS: Appearance Urine Clear; Color Urine Yellow; Glucose Urine UA Negative (Negative); Leukocyte Esterase Urine Negative (Negative); Nitrite Urine Negative (Negative); PH 6.5 (5.0-9.0); Specific Gravity - Urine 1.015 (1.005-1.025); Urine Blood Negative (Negative); Urine Ketones Negative (Negative); Urine Protein Negative (Neg-Trace)
== END 2023-01-10 13:28 | disposition home or self-care (01) ==
LOC: HO.CHCLDS 13:27
PROVIDERS: Visit Provider Family Medicine
DX: R32 Unspecified urinary incontinence (principal)
CPT/HCPCS: 81003; 87086

== ENCOUNTER 2023-01-20 14:25 | Outpatient (AMB) | payer MEDICAID, SELFPAY ==
--- NOTE | 2023-01-20 14:45 | MHC.OFFVIS ---
Intake Intake Visit Reasons: Bechets Intake Note: Patient presents today for concerns of hypermobility syndrome. c/o veena shoulder pain. Reports seen by [facility] and referred to PT. 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 I had seen her over a year ago. We tried to start her on colchicine 0.6 mg daily in addition to the hydroxychloroquine 200 mg b.i.d.. She thought in the past that she had some benefit with her widespread pains with the hydroxychloroquine. It looks like that she did not take these for very long. There was some diarrhea and loose stools so she stopped both of them. She has since had significant personal and psychiatric problems. She was in the hospital in October with a accidental overdose of fentanyl. After that her children were taken from her by the state. She is very upset by this. She has also been fired from her job and has no income outside of food stamps. She is back with her partner living in the house of the mother of the partner. She does have multiple appointments in mental health that she tries to keep. She was put on some gabapentin by pain management and that has helped slightly. She is also taking occasional ibuprofen for her pains. Areas of pain include muscles and joints throughout the body. This includes the neck, shoulders, hands, lower back, lateral hips, knees and feet. She was seen at [facility] for her right shoulder pain. This exacerbated when she was involved in removing cell phone from the hands of her son. She has been receiving some physical therapy for the shoulder pain and it is improving her range of motion she believes but not some much her pain. She thinks this shoulder injury occurred in the spring but does not know exactly when. 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 She does note hyper flexibility of the thumbs and also some ability to dislocate her shoulders at will. She was also given a short course of prednisone for recurrent oral ulcers and those did improve. She has been having occasional vaginal ulcers as well. She thinks the prednisone helped somewhat her joint pains but not completely so. She is tearful intermittently in the office relating her various difficulties over the past 6 months. She does see psychotherapist but no medication has been issues so far. [facility] Medical History Asthma Behcet's disease Depression alf use of drug Weight gain Social History Household Members: Other Household Members Other:: Boyfriend Housing: House Are you a primary long term care social worker to a significant other at home: No Do you presently have visiting nurse or other home services: No 75 years or older and lives alone: No Alcohol intake: unknown Patient Tobacco Use Status: Current everyday Tobacco user Tobacco use type: Cigarette Cigarette Packs Per Day: 1 Cigarettes Per Day: 20.0 Years Smoked: since age 13 e-Cigarette/Vaping Use: Never Used Second Hand Smoke Exposure: Yes Substance Use Type: Crack/Cocaine, Marijuana and Opiates service: No Current occupational status: employed 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 She did lose some weight in the summer when she was hospitalized. Some of that weight has come back. Negative for appetite change, fever, chills, malaise Eyes Details: She gets intermittent headaches. Negative for vision change, dry eyes and dizziness ENT Details: Intermittent crops of painful oral ulcers. None present today. Negative for hearing change, tinnitus, nose bleeds and oral dryness. Card Details: Negative chest pain, edema and syncope Resp Details: Negative for SOB, cough and wheezing GI Details: Occasional loose stools. Negative indigestion/heartburn, nausea, abdominal pain, bowel changes, constipation and bloody stool. Details: Negative for dysuria, hematuria, nocturia, decreased force/flow and genital discharge Skin/Breast Details: She has occasional papules on the face. These are sometimes itchy. She uses some witch Nola on them. Negative for itching, hives, Raynaud's symptoms, sun sensitivity, and skin cancer Neuro Details: Negative for epilepsy, palsy, stroke, changes in speech, tingling and weakness Psych Details: Anxiety and depression symptoms continue. Feels frustrated at trying to get back to work and get her children back. Endo Details: Negative for polyuria and polydypsia Vamsi/Lymph Details: Negative for excessive bruising or bleeding. Physical Exam APPEARANCE: Patient in no acute distress The EYES no redness, pupils equal and reactive to light, eyelids normal EARS: External ear normal, canal clear and tympanic membrane normal. NOSE/SINUS: Airflow through both nares, no nasal discharge, no bleeding THROAT: Oral mucosa moist, no ulcerations NECK: No thyromegaly or masses, no adenopathy, trachea midline. HEART: Regulrar rhythm, S1-S2 heard, no murmurs, rubs or gallops. LUNG: Clear to percussion and auscultation ABD: Normal bowel sounds, no organomegaly, masses or tenderness. EXTREMITIES: No edema, no calf tenderness, normal peripheral pulses. NEURO: Oriented and alert x3. No focal weakness. Reflexes symmetric. Gait normal. SKIN: She has few papules on the face mostly in the forehead and the lower cheek regions. These look like acne. No objective signs of Raynaud's disease. Over the heels in both feet there is some cracking and dryness of the skin. These are not tender today. There is no true breaks in the skin, redness, or soft tissue swelling. This looks mostly like dry skin. There is a callus underneath the 2nd metatarsal and medial aspect of the 1st metatarsals bilaterally. JOINT EXAM:.?? Cervical Spine:.? Full range of motion without pain; mild cervical muscle tenderness. Thoracic Spine:.? No scoliosis.? No tenderness on palpation. Lumbar Spine:.? Alignment normal.? Mild pain at the extremes of flexion or extension. Mild lumbar muscle tenderness. Chest Wall:.? No tenderness, swelling, increased warmth or erythema. Hands:.? She has some ability to hyperextend the thumb. This is not quite as severe as typical Ivonne-Danlos but does reflect some degree of hypermobility. The hand joint range of motion seems to be pain-free range of motion without tenderness, swelling, increased warmth or erythema. Able to make a full fist and has a good district superintendent strength. Wrists:.? Normal range of motion with slight pain at the extremes of flexion extension. There is some minimal dorsal tenderness but no swelling, increased warmth or erythema. Elbows:. Normal pain-free range of motion. There is bilateral medial and lateral epicondylar tenderness but no tenderness or swelling over the joint spaces. No increased warmth or erythema. Shoulders:. Left: Mild discomfort with extremes of motion. Minimal anterior tenderness. No swelling, adenopathy or weakness. She can voluntarily anteriorly dislocate the shoulder. Right:? Mild to moderate pain with abduction at 150 degrees or with more than 20 degrees of rotation. There is some mild anterior and subacromial tenderness. She can anteriorly dislocate the shoulder voluntarily. There is no adenopathy. There is questionable abductor weakness. Hips:.? Full range of motion with some mild buttock and back pain with extremes of internal external rotation. No groin pain with motion. No groin mass or tenderness. Hip bursa:.? Mild bilateral trochanteric tenderness. Knees:.?? Normal pain-free range of motion with slight medial tenderness but no effusion, soft tissue swelling, increased warmth or erythema.? There is no patellofemoral crepitation Ankles:.? Normal pain-free range of motion with slight tenderness but no swelling, increased warmth or erythema. Feet: Right: Mild tenderness across the insteps and MTP regions but I do not appreciate any redness or swelling. The skin envelope is intact. Left: Mild 1st MTP bony enlargement with slight tenderness at that joint and over the instep. Otherwise no other areas of tenderness, swelling, increased warmth or erythema. Sensory exam and skin envelope seems intact. Tender points: Mild tenderness to digital palpation at the trapezius, second rib, lateral epicondyle, knees, greater trochanter area bilaterally. Results Reviewed Results Reviewed: Laboratory Tests 08/29/21 12/16/22 12/16/22 11:49 10:55 10:59 WBC 4.9 Hgb 13.2 ESR 12 Creatinine 0.66 AST 14 ALT 15 TSH 0.52 Urine Protein 01/10/23 13:33 WBC Hgb ESR Creatinine AST ALT TSH Urine Protein Negative Assessment & Plan Assessment & Plan (1) Behcet's disease: Code(s): M35.2 - Behcet's disease (2) MDD (major depressive disorder), recurrent episode: Code(s): F33.9 - Major depressive disorder, recurrent, unspecified (3) Fibromyalgia: Code(s): M79.7 - Fibromyalgia Plan So there still are these episodes of vaginal and oral ulcerations consistent with Behcet's disease. The arthralgias today are not associated with clear-cut joint swelling or inflammation so I think much of that is related to fibromyalgia. This is likely exacerbated by her current depression and psychosocial problems. I encouraged her to follow through with Behavioral Health to try to deal with those problems. She has some degree of increased flexibility in the wrists and shoulders but I do not think this reaches the severity of Ivonne-Danlos syndrome. In any case there is no specific treatment for that disorder outside of physical therapy. She may need to apply for transitional assistance through the welfare system. It would appear most of her disability at present is related to psychiatric disease so she may need to bring those papers to her behavioral health providers. We talked about trying Otezla which would be a drug to try to reduce the frequency and severity of her oral ulcers. This would carry with it the risk of some GI symptoms which she is already having. I gave her some information on the Otezla to review. We will consider that when she comes back in a few weeks. Today we will check inflammatory markers. Reveiw of her history, the records, her exam and discussing her treament optins took 33 minutes. Orders: Orders C Reactive Protein Today M35.2 - Behcet's disease Erythrocyte Sedimentation Rate Today M35.2 - Behcet's disease Coding Level of Care Code Est Pt Level 4 (15596) Diagnoses Behcet's disease M35.2 MDD (major depressive disorder), recurrent episode F33.9 Fibromyalgia M79.7
== END 2023-01-20 15:38 | disposition home or self-care (01) ==
PROVIDERS: PCP Family Medicine; Visit Provider Internal Medicine Rheumatology
DX: M35.2 Behcet's disease (principal); F33.9 Major depressive disorder, recurrent, unspecified; M79.7 Fibromyalgia
CPT/HCPCS: 99214

== ENCOUNTER 2023-01-20 14:25 | Outpatient (REF) | payer MEDICAID, SELFPAY ==
[2023-01-20 17:21] LABS: C Reactive Protein 0.11 mg/dL (< or = 0.50)
[2023-01-20 17:52] LABS: Erythrocyte Sedimentation Rate 11 MM/HR (0-20)
== END 2023-01-20 14:26 | disposition home or self-care (01) ==
LOC: HO.LAB 14:25
PROVIDERS: PCP Family Medicine; Visit Provider Internal Medicine Rheumatology
DX: M35.2 Behcet's disease (principal); M79.7 Fibromyalgia; F33.9 Major depressive disorder, recurrent, unspecified
CPT/HCPCS: 36415; 85652; 86140; 99212

== ENCOUNTER 2023-03-09 04:59 | Emergency (ER) | payer MEDICAID, SELFPAY ==
[2023-03-09 05:05] VITALS: BP 135/97; PULSE 83; RESP 16; TEMP 36.7; O2SAT 92; BMI 37.2
[2023-03-09 05:24] VITALS: BP 127/71; PULSE 84; RESP 16; TEMP 36.8; O2SAT 96
--- NOTE | 2023-03-09 05:24 | ED_ITS ---
HPI - General Adult General Chief complaint: General Medical Stated complaint: multiple issues Time Seen by Provider: 03/09/23 05:24 Source: patient Mode of arrival: ambulatory Limitations: no limitations History of Present Illness HPI narrative: Patient history of Bahcet disease used to be on colchicine and hydrochloroquine she stop taking 6 months ago she is 9 weeks now for last 4 5 days noticed rash around the angle of the mouth and the mouth unable to drink fluids because the pain was seen at urgent care center and prescribed Valtrex comes back as still has pain and lesions Related Data Home Medications Medication Instructions Recorded Confirmed cetirizine 10 mg tablet (Zyrtec) 10 mg PO DAILY PRN Allergy Symptoms 08/29/21 01/20/23 albuterol sulfate 90 mcg/actuation 2 puff inhalation Q4-6H PRN 10/28/22 01/20/23 aerosol inhaler (Ventolin HFA) Shortness Of Breath Or Wheezing nicotine 14 mg/24 hr daily 1 patch topical DAILY PRN Nicotine 10/28/22 01/20/23 transdermal patch Cravings ibuprofen 600 mg tablet 600 mg PO Q6H 01/01/23 01/20/23 ondansetron HCl 4 mg tablet 4 mg PO Q8H 01/01/23 01/20/23 Previous Rx's Medication Instructions Recorded gabapentin 100 mg capsule 100 mg PO TID 14 days #42 caps 01/01/23 prednisone 20 mg tablet 20 mg PO BID #14 tabs 01/01/23 prednisolone 15 mg/5 mL oral 22.5 mg (7.5 mL) PO QAM 10 days 03/09/23 solution #75 mL Allergies Allergy/AdvReac Type Severity Reaction Status Date / Time environmental allergies Allergy Nasal Verified 01/20/23 14:47 congestion Review of Systems 2 Review of Systems: Yes all other systems are reviewed and are negative PMF Past Medical History Medical History Depression skilled nursing use of drug Weight gain Asthma Behcet's disease Social History Social History Household Members: Other Household Members Other:: Boyfriend Housing: House Are you a primary primary care provider to a significant other at home: No Do you presently have visiting nurse or other home services: No Alcohol intake: unknown Patient Tobacco Use Status: Current everyday Tobacco user Tobacco use type: Cigarette Cigarette Packs Per Day: 1 Cigarettes Per Day: 20.0 Years Smoked: since age 13 Smoked in Last 30 Days: No e-Cigarette/Vaping Use: Never Used Second Hand Smoke Exposure: Yes Use of substances other than those prescribed or required for medical reasons: No Substance Use Type: Crack/Cocaine, Marijuana and Opiates Advance Directives: No Advance Directives Information Provided: No Patient : Yes service: No Current occupational status: employed 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 Oriented X3. No acute distress. Eyes: No lesions in the eye anterior chamber normal ENT: Pharynx erythematous with superficial ulcers on the soft palate answers on the right angle of the lower lip Oral Mucosa moist Neck: Normal inspection. Neck supple. CVS: Normal heart rate and rhythm. Pulses normal. Respiratory: No respiratory distress. Equal air entry bilateral, no wheezing/rales/rhonchi Abdomen: Soft and nontender. Bowel sounds are present, no mass palpable, no CVA tenderness Skin: Skin warm and dry. Normal skin color. Normal skin turgor. Maculopapular lesion on bilateral knee Extremities: No lower extremity edema. No calf tenderness Neuro: Oriented X 3. Medications Administered Discontinued Medications Generic Name Dose Route Start Last Admin Trade Name Freq PRN Reason Stop Dose Admin Sodium Chloride 1,000 mls @ 999 mls/hr 03/09/23 05:39 03/09/23 06:13 Ns IV 03/09/23 06:39 999 mls/hr .Q1H1M ONE Administration Prednisolone Sodium Phosphate 20 mg 03/09/23 05:47 03/09/23 06:02 Prednisolone Sodium Phosphate 15 Mg/5 Ml Solution PO 03/09/23 05:48 20 mg ONCE ONE Administration Medical Decision Making Medical Decision Making MDM Narrative: Patient 9 weeks with partial disease with likely flare-up with lesions on the skin and the mucosa with elevated CRP patient has normal sed rate patient advised to follow with rheumatology will give a course of prednisone Lab Data MDM Lab Attestation statement: I reviewed the patient's lab results. 03/09/23 06:09 03/09/23 06:09 Labs: Lab Results 03/09/23 Range/Units 06:09 WBC 7.0 (4.8-10.8) X10*3/uL RBC 4.15 L (4.20-5.50) X10*6/uL Hgb 13.2 (12.0-16.0) g/dl Hct 37.6 (37.0-47.0) % MCV 90.6 (80.0-98.0) fL MCH 31.8 (27.0-33.0) pg MCHC 35.1 H (31.0-35.0) g/dl RDW 11.2 (11.0-16.0) % Plt Count 242 (160-400) X10*3/uL MPV 9.6 (9.4-12.3) fL Immature Gran % (Auto) 0.3 (0.0-0.4) % Neut % (Auto) 67.0 (45-73) % Lymph % (Auto) 21.2 (20-40) % Nuckolls % (Auto) 10.5 (2-11) % Eos % (Auto) 0.7 (0-4) % Baso % (Auto) 0.3 (0-2) % Lymph # (Auto) 1.5 (1.2-4.9) X10*3/uL Nuckolls # (Auto) 0.7 (0.1-1.2) X10*3/uL Eos # (Auto) 0.1 (0.0-0.4) X10*3/uL Baso # (Auto) 0.0 (0.0-0.2) X10*3/uL Abs Immat Gran (auto) 0.02 (0.00-0.03) X10*3/uL Absolute Neuts (auto) 4.7 (2.0-8.3) x10*3/uL Absolute Nucleated RBC 0.000 (0.0-0.012) X10*3/uL Nucleated RBC % (auto) 0.0 (0.0-0.2) /100WBC ESR 16 (0-20) MM/HR Sodium 138 (135-145) mmol/L Potassium 3.8 (3.3-5.1) mmol/L Chloride 108 (96-108) mmol/L Carbon Dioxide 23 (22-29) mmol/L Anion Gap 11 L (12-20) BUN 10 (9-16) mg/dL Creatinine 0.63 (0.5-1.4) mg/dL Estim Creat Clear Calc 156.7 Estimated GFR > 60 Random Glucose 102 (60-115) mg/dL Calcium 9.1 (8.4-10.2) mg/dL C-Reactive Protein 0.64 H (< or = 0.50) mg/dL S. pyogenes GrpA KAMRON Negative (Negative) Discharge Plan Discharge Clinical Impression: Behcet's disease Patient Disposition: Home, Self-Care Instructions: Behcet Syndrome (ED) Additional Instructions: Take prednisone as prescribed Drink plenty of fluids Follow with your post production assistant Prescriptions: New prednisolone 15 mg/5 mL solution 22.5 mg PO QAM 10 Days Qty: 75 0RF No Action nicotine 14 mg/24 hr patch 24 hour 1 patch topical DAILY PRN (Reason: Nicotine Cravings) albuterol sulfate [Ventolin HFA] 90 mcg/actuation HFA aerosol inhaler 2 puff inhalation Q4-6H PRN (Reason: Shortness Of Breath Or Wheezing) cetirizine [Zyrtec] 10 mg tablet 10 mg PO DAILY PRN (Reason: Allergy Symptoms) ibuprofen 600 mg tablet 600 mg PO Q6H ondansetron HCl 4 mg tablet 4 mg PO Q8H prednisone 20 mg tablet 20 mg PO BID Qty: 14 0RF gabapentin 100 mg capsule 100 mg PO TID 14 Days Qty: 42 0RF
[2023-03-09] MEDS: prednisoLONE sodium phosphate 15 MG/5 ML SOLUTION 20 MG PO (06:02)
[2023-03-09] MEDS: 0.9 % Sodium Chloride 1,000 ML 999 ML IV (06:13)
[2023-03-09 06:18] LABS: Basophils Percent Auto 0.3 % (0-2); Eosinophils Absolute Auto 0.1 X10*3/uL (0.0-0.4); Eosinophils Percent Auto 0.7 % (0-4); Hematocrit 37.6 % (37.0-47.0); Hemoglobin 13.2 g/dl (12.0-16.0); Imm Gran Abs Auto 0.02 X10*3/uL (0.00-0.03); Imm Gran Pct Auto 0.3 % (0.0-0.4); Lymphocytes Absolute Auto 1.5 X10*3/uL (1.2-4.9); Lymphocytes Percent Auto 21.2 % (20-40); MANUAL DIFF FLAG NO; Mean Corpuscular HGB Conc 35.1 g/dl (31.0-35.0); Mean Corpuscular Hemoglobin 31.8 pg (27.0-33.0); Mean Corpuscular Volume 90.6 fL (80.0-98.0); Mean Platelet Volume 9.6 fL (9.4-12.3); Monocytes Absolute Auto 0.7 X10*3/uL (0.1-1.2); Monocytes Percent Auto 10.5 % (2-11); Neutrophils Absolute Auto 4.7 x10*3/uL (2.0-8.3); Platelet Count 242 X10*3/uL (160-400); Red Blood Count 4.15 X10*6/uL (4.20-5.50); Red Cell Distribution Width 11.2 % (11.0-16.0)
[2023-03-09 06:23] LABS: IDNOW Serial# 08D9AD1C; Strep A Nucleic Acid Negative (Negative)
--- NOTE | 2023-03-09 06:25 | PC.NURSE ---
Pt presents to ED with concerns that she has shingles vs an auto immune flareup. Pt had COVID approx 2 weeks ago, since then has found ulcers/cold sores on her mouth and in her throat. Also increased fatigue and pains all over. 20g IV placed in the right AC, labs drawn and sent. Pt medicated per MAY. No other complaints at this time.
[2023-03-09 06:33] LABS: Anion Gap 11 (12-20); Blood Urea Nitrogen 10 mg/dL (9-16); C Reactive Protein 0.64 mg/dL (< or = 0.50); Calcium 9.1 mg/dL (8.4-10.2); Carbon Dioxide 23 mmol/L (22-29); Chloride 108 mmol/L (96-108); Creatinine Clr Calc Pharmacy 156.7; Estimated Glomerular Filt Rate > 60; Glucose Random 102 mg/dL (60-115); Potassium 3.8 mmol/L (3.3-5.1); Sodium 138 mmol/L (135-145)
[2023-03-09 06:50] LABS: Erythrocyte Sedimentation Rate 16 MM/HR (0-20)
== END 2023-03-09 07:04 | disposition home or self-care (01) ==
PROVIDERS: Emergency Provider Internal Medicine; PCP Family Medicine
DX: O99.891 Other specified diseases and conditions complicating pregnancy (principal); M35.2 Behcet's disease; Z3A.09 9 weeks gestation of pregnancy
CPT/HCPCS: 80048; 85025; 85652; 86140; 87651; 99283; 99284

== ENCOUNTER 2023-03-12 09:39 | Outpatient (AMB) | payer MEDICAID, SELFPAY ==
--- NOTE | 2023-03-12 09:45 | MHC.OFFVIS ---
Intake Vital Signs 03/12/23 09:47 Height 5 ft 8 in Weight 246 lb 0.574 oz BMI 37.4 BP 124/88 Blood Pressure Location Lt brachial Position Sitting Pulse 89 Pulse Source Pulse Oximeter Temp 99.4 F Temp Source Skin Pulse Oximetry (%) 98 Oxygen Delivery Method Room Air Intake Visit Reasons: Behcet's Flare up Intake Note: Patient presents today for Behcet's flare up. Reports being 10 weeks . Has many sores on her lips and many areas of the mouth. Has rashes on her knee. Vagina feels uncomfortable. Left eye discharge. ER visit on 03/09/23. Was prescribed prednisolone liquid, requesting oral dose. 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 Accompanied by: Self / Same As Patient Allergies environmental allergies Allergy (Verified 03/12/23 09:52) Nasal congestion Medication List - Last Reconciled 03/12/23 by Chiara Ramírez MD albuterol sulfate 90 mcg/actuation (Ventolin HFA) 2 puffs inhalation Q4-6H PRN cetirizine (Zyrtec) 10 mg PO DAILY PRN gabapentin 100 mg PO TID 14 days ibuprofen 600 mg PO Q6H nicotine 1 patch topical DAILY PRN ondansetron HCl 4 mg PO Q8H prednisolone 22.5 mg (7.5 mL) PO QAM 10 days prednisone 20 mg PO BID HPI HPI Comments History of Present Illness Details This is a 37-year-old female with history of Behcet's who presents for an urgent visit. Patient states that back February 25 she was diagnosed with COVID and she was sick for a few days. Over the last 10 days or so she has been feeling that she is having a Behcet's flare-up. She has been having generalized body aches, low-grade fevers, she has been having mouth sores on her gums, oral mucosa and throat. She has difficulty swallowing. She states that in addition to that she has been having bleeding sores on her lips. This is not typical of her Behcet's flare-ups. She states that she has had 1 episode of herpes infection affecting her mouth back when she was a teenager. She also feels that she is having nasal sores. She feels like she is starting to have vaginal irritation but no ulcers. She also has been having few bumps on her knees. Over the last 2 or 3 days she has been having a sensation that she is having left eye discharge. She just found out that she is 10 weeks . She is planning to keep the baby. She went to urgent care and was prescribed Valtrex for 2 days only. She also went to the emergency room and was prescribed prednisolone liquid. She states that it tastes terrible she used prednisone 10 mg daily for 2 days from an old prescription. She has been under plenty of psychosocial stressors including financial problems, also her children have been taken away from her. The patient is tearful and crying throughout the visit. Previous history by Dr. Kim: This patient with a history of Behcet's disease presents for evaluation of widespread pains. I had seen her over a year ago. We tried to start her on colchicine 0.6 mg daily in addition to the hydroxychloroquine 200 mg b.i.d.. She thought in the past that she had some benefit with her widespread pains with the hydroxychloroquine. It looks like that she did not take these for very long. There was some diarrhea and loose stools so she stopped both of them. She has since had significant personal and psychiatric problems. She was in the hospital in October with a accidental overdose of fentanyl. After that her children were taken from her by the state. She is very upset by this. She has also been fired from her job and has no income outside of food stamps. She is back with her partner living in the house of the mother of the partner. She does have multiple appointments in mental health that she tries to keep. She was put on some gabapentin by pain management and that has helped slightly. She is also taking occasional ibuprofen for her pains. Areas of pain include muscles and joints throughout the body. This includes the neck, shoulders, hands, lower back, lateral hips, knees and feet. She was seen at [facility] for her right shoulder pain. This exacerbated when she was involved in removing cell phone from the hands of her son. She has been receiving some physical therapy for the shoulder pain and it is improving her range of motion she believes but not some much her pain. She thinks this shoulder injury occurred in the spring but does not know exactly when. 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 She does note hyper flexibility of the thumbs and also some ability to dislocate her shoulders at will. She was also given a short course of prednisone for recurrent oral ulcers and those did improve. She has been having occasional vaginal ulcers as well. She thinks the prednisone helped somewhat her joint pains but not completely so. She is tearful intermittently in the office relating her various difficulties over the past 6 months. She does see psychotherapist but no medication has been issues so far. [facility] Medical History Depression senior living use of drug Weight gain Asthma Behcet's disease Social History Household Members: Other Household Members Other:: Boyfriend Housing: House Are you a primary care services manager to a significant other at home: No Do you presently have visiting nurse or other home services: No 75 years or older and lives alone: No Alcohol intake: unknown Patient Tobacco Use Status: Current everyday Tobacco user Tobacco use type: Cigarette Cigarette Packs Per Day: 1 Cigarettes Per Day: 3 Years Smoked: since age 13 e-Cigarette/Vaping Use: Never Used Second Hand Smoke Exposure: Yes Substance Use Type: Crack/Cocaine, Marijuana and Opiates service: No Current occupational status: employed 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 Sexual orientation: Straight/Heterosexual Review of Systems Const Reports fatigue, Reports fever(s) and Reports weakness ENT Details: Bleeding mouth sores Nasal sores Reports bleeding gums, Reports dysphagia and Reports sore throat GI Reports dysphagia Details: Vaginal irritation Musc Reports myalgias and Reports arthralgias Skin/Breast Reports lesions and Reports rash Neuro Reports weakness Endo Reports fatigue Vamsi/Lymph Reports lymphadenopathy Physical Exam Vital Signs: Last Vital Signs Temp 99.4 F 03/12/23 09:47 Pulse 89 03/12/23 09:47 BP 124/88 03/12/23 09:47 Pulse Ox 98 03/12/23 09:47 Oxygen Delivery Method Room Air 03/12/23 09:47 BMI result Body Mass Index 37.4 Const General: cooperative, in distress and anxious Nutritional Appearance: obese Orientation/consciousness: patient oriented x3 Limitations: no limitations HEENT Other: Bleeding ulcerations on her lips Multiple oral ulcers and sores Nasal mucosa redness Head: Yes normocephalic and Yes atraumatic Resp Effort & Inspection: normal respiratory effort and able to speak in complete sentences Auscultation: clear to auscultation bilaterally Cardio Rate: regular rate Skin Other: Few small circular raised rashes on the anterior aspect of both knees Neuro General: patient oriented x3 Extrem Other: No active synovitis Assessment & Plan Assessment & Plan (1) Behcet's disease: Code(s): M35.2 - Behcet's disease Plan: This is a 37-year-old female with history of patients who presents an urgent visit. On exam she has multiple oral ulcerations consistent with Behcet's, she also has bleeding lesions affecting her lips which according to patient, are not typical of her Behcet's flare-ups. This might be a concomitant herpes infection. What complicates the picture is that she is 10 weeks . Will start prednisone 15 mg daily for 2 weeks Start Valtrex for 10 days Triamcinolone cream for her lip lesions Viscous lidocaine for painful pharyngeal lesions Follow-up in 2 weeks Plan I spent 35 minutes reviewing patient's chart, evaluating patient, placing orders, counseling patient and documenting in the chart Medications: New prednisone 15 mg (3 x 5 mg) PO DAILY 90 tabs 0RF lidocaine HCl 2% (Lidocaine Viscous) 1 appl mucous membrane Q8-12H PRN 100 mL 0RF pain triamcinolone acetonide 0.1% apply on outside of lips 1 appl topical BID 15 grams 0RF valacyclovir (Valtrex) 1,000 mg PO BID 10 days 20 tabs 0RF Discontinued prednisolone Discontinued Reason: Doctor's Order 22.5 mg (7.5 mL) PO QAM 10 days 75 mL 0RF prednisone Discontinued Reason: Doctor's Order 20 mg PO BID 14 tabs 0RF Coding Level of Care Code Est Pt Level 4 (16537) Diagnoses Behcet's disease M35.2
[2023-03-12 09:47] VITALS: BP 124/88; PULSE 89; TEMP 37.4; O2SAT 98; BMI 37.4
== END 2023-03-12 10:21 | disposition home or self-care (01) ==
PROVIDERS: PCP Family Medicine; Visit Provider Student in an Organized Health Care Education/Training Program
DX: M35.2 Behcet's disease (principal)
CPT/HCPCS: 99214

== ENCOUNTER → 2023-03-12 09:39 | Outpatient (BNVA) | payer MEDICAID, SELFPAY | PROVIDERS: PCP Family Medicine; Visit Provider Student in an Organized Health Care Education/Training Program | DX: M35.2 Behcet's disease (principal) | CPT/HCPCS: 99212 ==

== ENCOUNTER 2023-03-26 09:21 | Outpatient (AMB) | payer MEDICAID, SELFPAY ==
[2023-03-26 09:28] VITALS: BP 136/80; PULSE 113; TEMP 36.4; O2SAT 97; BMI 37.4
--- NOTE | 2023-03-26 09:28 | A.OFFVIS_ITS ---
Intake Vital Signs 03/26/23 09:28 Height 5 ft 8 in Weight 246 lb 0.574 oz BMI 37.4 BP 136/80 Blood Pressure Location Rt brachial Position Sitting Pulse 113 H Pulse Source Pulse Oximeter Temp 97.6 F Temp Source Skin Pulse Oximetry (%) 97 Intake Visit Reasons: Behcet's Intake Note: Pt last seen 03/12/23, presents today for follow up. States she is feeling much better then last time. States she needs paperwork for work Reacher Required: No Accompanied by: Self / Same As Patient Allergies environmental allergies Allergy (Verified 03/26/23 09:30) Nasal congestion Medication List - Last Reconciled 03/26/23 by Chiara Ramírez MD albuterol sulfate 90 mcg/actuation (Ventolin HFA) 2 puffs inhalation Q4-6H PRN cetirizine (Zyrtec) 10 mg PO DAILY PRN gabapentin 100 mg PO TID 14 days lidocaine HCl 2% (Lidocaine Viscous) 1 appl mucous membrane Q8-12H PRN nicotine 1 patch topical DAILY PRN prednisone 15 mg (3 x 5 mg) PO DAILY triamcinolone acetonide 0.1% 1 appl topical BID HPI HPI Comments History of Present Illness Details 37-year-old female with Behcet's returns for follow-up. She took prednisone 15 mg daily for 12 days. She completed Valtrex course. She also use the triamcinolone cream. She states that she feels much better overall. Oral and lip ulcers have almost resolved. Generalized body aches and joint pains have improved significantly. Sore throat improved. She would like to go back to work. She has not seen her OBGYN yet. She believes that she is still . She would like to get back to work Previous history by Dr. Kim: This patient with a history of Behcet's disease presents for evaluation of widespread pains. I had seen her over a year ago. We tried to start her on colchicine 0.6 mg daily in addition to the hydroxychloroquine 200 mg b.i.d.. She thought in the past that she had some benefit with her widespread pains with the hydroxychloroquine. It looks like that she did not take these for very long. There was some diarrhea and loose stools so she stopped both of them. She has since had significant personal and psychiatric problems. She was in the hospital in October with a accidental overdose of fentanyl. After that her children were taken from her by the state. She is very upset by this. She has also been fired from her job and has no income outside of food stamps. She is back with her partner living in the house of the mother of the partner. She does have multiple appointments in mental health that she tries to keep. She was put on some gabapentin by pain management and that has helped slightly. She is also taking occasional ibuprofen for her pains. Areas of pain include muscles and joints throughout the body. This includes the neck, shoulders, hands, lower back, lateral hips, knees and feet. She was seen at [facility] for her right shoulder pain. This exacerbated when she was involved in removing cell phone from the hands of her son. She has been receiving some physical therapy for the shoulder pain and it is improving her range of motion she believes but not some much her pain. She thinks this shoulder injury occurred in the spring but does not know exactly when. 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 She does note hyper flexibility of the thumbs and also some ability to dislocate her shoulders at will. She was also given a short course of prednisone for recurrent oral ulcers and those did improve. She has been having occasional vaginal ulcers as well. She thinks the prednisone helped somewhat her joint pains but not completely so. She is tearful intermittently in the office relating her various difficulties over the past 6 months. She does see psychotherapist but no medication has been issues so far. 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 Weight gain Asthma Behcet's disease Social History Household Members: Other Household Members Other:: Boyfriend Housing: House Are you a primary care clinician to a significant other at home: No Do you presently have visiting nurse or other home services: No 75 years or older and lives alone: No Alcohol intake: unknown Patient Tobacco Use Status: Current everyday Tobacco user Tobacco use type: Cigarette Cigarette Packs Per Day: 1 Cigarettes Per Day: 3 Years Smoked: since age 13 e-Cigarette/Vaping Use: Never Used Second Hand Smoke Exposure: Yes Substance Use Type: Crack/Cocaine, Marijuana and Opiates service: No Current occupational status: employed 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 Sexual orientation: Straight/Heterosexual Review of Systems ENT Denies bleeding gums, Denies mouth lesions, Denies odynophagia and Denies sore throat GI Denies odynophagia Musc Denies arthralgias and Denies joint swelling Physical Exam Vital Signs: Last Vital Signs Temp 97.6 F 03/26/23 09:28 Pulse 113 H 03/26/23 09:28 BP 136/80 03/26/23 09:28 Pulse Ox 97 03/26/23 09:28 BMI result Body Mass Index 37.4 Const General: cooperative Nutritional Appearance: obese Orientation/consciousness: patient oriented x3 Limitations: no limitations HEENT Other: Small healing ulcer on the left buccal mucosa No other visible tongue, oral or perioral ulcers Resp Effort & Inspection: normal respiratory effort and able to speak in complete sentences Auscultation: clear to auscultation bilaterally Cardio Rate: regular rate Skin Other: Few small circular raised rashes on the anterior aspect of both knees Neuro General: patient oriented x3 Extrem Other: No active synovitis Assessment & Plan Assessment & Plan (1) Behcet's disease: Code(s): M35.2 - Behcet's disease Plan: This is a 37-year-old female with history of patients who presents for follow- up. Doing much better after prednisone taper. Completed Valtrex scores Will taper prednisone to 10 mg daily for 2 weeks then 5 mg daily for 2 weeks. Will need to start a DMARDs. Discussed risks and benefits of hydroxychloroquine. It is generally safe in . Start hydroxychloroquine 200 mg Twice daily. In the past patient developed GI upset but hydroxychloroquine was given with colchicine, likely GI upset was related to colchicine. Labs today If patient requires another DMARD, azathioprine can be added. 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 Advised patient to make an appointment with her house player Plan I spent 25 minutes reviewing patient's chart, evaluating patient, placing orders, counseling patient and documenting in the chart Orders: Orders Complete Blood Count Auto Diff Today M35.2 - Behcet's disease C Reactive Protein Today M35.2 - Behcet's disease Comprehensive Met. Panel Today M35.2 - Behcet's disease Erythrocyte Sedimentation Rate Today M35.2 - Behcet's disease Thiopurine Methyltransferase Today Z51.81 - Encounter for therapeutic drug level monitoring, Z79.624 - termite control representative (current) use of inhibitors of nucleotide synthesis Medications: New hydroxychloroquine 200 mg PO BID 60 tabs 2RF Changed From prednisone 15 mg (3 x 5 mg) PO DAILY 90 tabs 0RF To prednisone Take 2 tabs daily for 2 weeks then 1 tab daily for 2 weeks then stop 42 tabs 0RF Coding Level of Care Code Est Pt Level 4 (18304) Diagnoses Behcet's disease M35.2 Long-term use of hydroxychloroquine Z79.899
== END 2023-03-26 09:51 | disposition home or self-care (01) ==
PROVIDERS: PCP Family Medicine; Referring Provider Family Medicine; Visit Provider Student in an Organized Health Care Education/Training Program
DX: M35.2 Behcet's disease (principal); Z79.899 Other long term (current) drug therapy
CPT/HCPCS: 99214

== ENCOUNTER 2023-03-26 09:21 | Outpatient (REF) | payer MEDICAID, SELFPAY ==
[2023-03-26 10:39] LABS: MANUAL DIFF FLAG NO
[2023-03-26 10:50] LABS: Basophils Percent Auto 0.4 % (0-2); Eosinophils Percent Auto 0.5 % (0-4); Hematocrit 38.7 % (37.0-47.0); Hemoglobin 13.6 g/dl (12.0-16.0); Imm Gran Abs Auto 0.03 X10*3/uL (0.00-0.03); Imm Gran Pct Auto 0.4 % (0.0-0.4); Lymphocytes Absolute Auto 1.4 X10*3/uL (1.2-4.9); Mean Corpuscular HGB Conc 35.1 g/dl (31.0-35.0); Mean Corpuscular Hemoglobin 31.8 pg (27.0-33.0); Mean Corpuscular Volume 90.4 fL (80.0-98.0); Mean Platelet Volume 9.5 fL (9.4-12.3); Monocytes Absolute Auto 0.5 X10*3/uL (0.1-1.2); Monocytes Percent Auto 5.9 % (2-11); Neutrophils Absolute Auto 6.2 x10*3/uL (2.0-8.3); Neutrophils Percent Auto 75.8 % (45-73); Platelet Count 221 X10*3/uL (160-400); Red Blood Count 4.28 X10*6/uL (4.20-5.50); Red Cell Distribution Width 11.9 % (11.0-16.0); White Blood Count 8.2 X10*3/uL (4.8-10.8)
[2023-03-26 11:23] LABS: Alanine Aminotransferase 13 U/L (0-31); Albumin Level 3.8 g/dL (3.5-5.0); Alkaline Phosphatase 66 U/L (39-117); Anion Gap 11 (12-20); Aspartate Amino Transferase 13 U/L (5-31); Bilirubin Total 0.3 mg/dL (0.0-1.0); Blood Urea Nitrogen 13 mg/dL (9-16); Calcium 9.4 mg/dL (8.4-10.2); Carbon Dioxide 21 mmol/L (22-29); Chloride 109 mmol/L (96-108); Estimated Glomerular Filt Rate > 60; Glucose Random 103 mg/dL (60-115); Potassium 3.8 mmol/L (3.3-5.1); Sodium 137 mmol/L (135-145); Total Protein 6.9 g/dL (6.5-8.0)
[2023-03-26 11:29] LABS: Erythrocyte Sedimentation Rate 10 MM/HR (0-20)
[2023-04-03 00:18] LABS: TPMT Activity 14
== END 2023-03-26 09:22 | disposition home or self-care (01) ==
LOC: HO.LAB 09:21
PROVIDERS: PCP Family Medicine; Visit Provider Student in an Organized Health Care Education/Training Program
DX: M35.2 Behcet's disease (principal); Z51.81 Encounter for therapeutic drug level monitoring; Z79.624 Long term (current) use of inhibitors of nucleotide synthesis; Z79.899 Other long term (current) drug therapy
CPT/HCPCS: 36415; 80053; 84433; 85025; 85652; 86140; 99212

== ENCOUNTER 2024-02-25 11:19 | Outpatient (AMB) | payer MEDICAID, SELFPAY ==
--- NOTE | 2024-02-25 11:23 | A.OFFVIS_ITS ---
Vital Signs 02/25/24 11:32 Height 5 ft 8 in Weight 282 lb 6.594 oz BMI 42.9 BP 115/70 Blood Pressure Location Lt brachial Position Sitting Respiration 16 Pulse 60 Pulse Source Pulse Oximeter Pulse Oximetry (%) 97 Oxygen Delivery Method Room Air Intake Visit Reasons: Behcet's Intake Note: Patient presents for Behcet's. Allergies environmental allergies Allergy (Verified 02/25/24 11:27) Nasal congestion Medication List - Last Reconciled 02/25/24 by Chiara Ramírez MD albuterol sulfate 90 mcg/actuation (Ventolin HFA) 2 puffs inhalation Q4-6H PRN cetirizine (Zyrtec) 10 mg PO DAILY PRN gabapentin 100 mg PO TID 14 days hydroxychloroquine 200 mg PO BID lidocaine HCl 2% (Lidocaine Viscous) 1 appl mucous membrane Q8-12H PRN nicotine 1 patch topical DAILY PRN nifedipine ER 30 mg PO DAILY PNV,calcium 35-srnx-fizmb acid 27 mg iron- 1 mg (M-Cliff Plus) 1 tab PO DAILY triamcinolone acetonide 0.1% 1 appl topical BID HPI Comments Details: 38-year-old female with Behcet's returns for follow-up. She has given about 5 months ago. Her baby is healthy. She states that she takes her hydroxychloroquine 400 mg daily, but she sometimes misses her dose. She would have some recurrence of mouth sores and as soon as she restarts it regularly the mouth sores go away. She was referred to start physical therapy for her shoulders for rotator cuff tendinopathy, she was told that she has hypermobility. She has gained significant weight since her and not losing weight breast-feeding. She has been having hypertension since her and was started on nifedipine. Previous history by Dr. Kim: This patient with a history of Behcet's disease presents for evaluation of widespread pains. I had seen her over a year ago. We tried to start her on colchicine 0.6 mg daily in addition to the hydroxychloroquine 200 mg b.i.d.. She thought in the past that she had some benefit with her widespread pains with the hydroxychloroquine. It looks like that she did not take these for very long. There was some diarrhea and loose stools so she stopped both of them. She has since had significant personal and psychiatric problems. She was in the hospital in October with a accidental overdose of fentanyl. After that her children were taken from her by the state. She is very upset by this. She has also been fired from her job and has no income outside of food stamps. She is back with her partner living in the house of the mother of the partner. She does have multiple appointments in mental health that she tries to keep. She was put on some gabapentin by pain management and that has helped slightly. She is also taking occasional ibuprofen for her pains. Areas of pain include muscles and joints throughout the body. This includes the neck, shoulders, hands, lower back, lateral hips, knees and feet. She was seen at [facility] for her right shoulder pain. This exacerbated when she was involved in removing cell phone from the h ands of her son. She has been receiving some physical therapy for the shoulder pain and it is improving her range of motion she believes but not some much her pain. She thinks this shoulder injury occurred in the spring but does not know exactly when. 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 She does note hyper flexibility of the thumbs and also some ab ility to dislocate her shoulders at will. She was also given a short course of prednisone for recurrent oral ulcers and those did improve. She has been having occasional vaginal ulcers as well. She thinks the prednisone helped somewhat her joint pains but not completely so. She is tearful intermittently in the office relating her various difficulties over the past 6 months. She does see psychotherapist but no medication has been issues so far. 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 Weight gain Asthma Behcet's disease Family History Father Cancer of lung Brother History of heart attack Social History Household Members: Other Household Members Other:: Boyfriend Housing: House Are you a primary residential child care counselor to a significant other at home: No Do you presently have visiting nurse or other home services: No 75 years or older and lives alone: No Alcohol intake: unknown Patient Tobacco Use Status: Current everyday Tobacco user Tobacco use type: Cigarette Cigarette Packs Per Day: 1 Cigarettes Per Day: 3 Years Smoked: since age 13 e-Cigarette/Vaping Use: Never Used Second Hand Smoke Exposure: Yes Substance Use Type: Crack/Cocaine, Marijuana and Opiates service: No Current occupational status: employed 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 Sexual orientation: Straight/Heterosexual Review of Systems ENT Denies bleeding gums, Denies mouth lesions, Denies odynophagia and Denies sore throat GI Denies odynophagia Musc Denies arthralgias and Denies joint swelling Physical Exam Vital Signs: Last Vital Signs Pulse 60 02/25/24 11:32 Resp 16 02/25/24 11:32 BP 115/70 02/25/24 11:32 Pulse Ox 97 02/25/24 11:32 Oxygen Delivery Method Room Air 02/25/24 11:32 BMI result Body Mass Index 42.9 Const General: cooperative Nutritional Appearance: obese Orientation/consciousness: patient oriented x3 Limitations: no limitations HEENT Other: No oral ulcers today Head: Yes normocephalic and Yes atraumatic Mouth: moist mucous membranes Resp Effort & Inspection: normal respiratory effort and able to speak in complete sentences Auscultation: clear to auscultation bilaterally Cardio Rate: regular rate Skin Other: No rashes noted today Neuro General: patient oriented x3 Extrem Other: No active synovitis Assessment & Plan Assessment & Plan (1) Behcet's disease: Code(s): M35.2 - Behcet's disease Category: Medical Plan: This is a 38-year-old female with Behcet's who presents for follow-up. Doing very well on hydroxychloroquine 400 mg daily. Gets intermittent flare-ups when she misses her hydroxychloroquine Continue hydroxychloroquine 400 mg daily. 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 Advised patient to make an appointment with her soap tender Plan I spent 25 minutes reviewing patient's chart, evaluating patient, placing ord ers, counseling patient and documenting in the chart Orders: Orders Complete Blood Count Auto Diff 6 Months M35.2 - Behcet's disease Comprehensive Met. Panel 6 Months M35.2 - Behcet's disease C Reactive Protein 6 Months M35.2 - Behcet's disease Erythrocyte Sedimentation Rate 6 Months M35.2 - Behcet's disease Medications: Discontinued prednisone Discontinued Reason: Doctor's Order Take 2 tabs daily for 2 weeks then 1 tab daily for 2 weeks then stop 42 tabs 0RF Coding Level of Care Code Est Pt Level 4 (65752) Diagnoses Behcet's disease M35.2 Long-term use of hydroxychloroquine Z79.899
[2024-02-25 11:32] VITALS: BP 115/70; PULSE 60; RESP 16; O2SAT 97; BMI 42.9
== END 2024-02-25 11:58 | disposition home or self-care (01) ==
PROVIDERS: PCP Family Medicine; Visit Provider Student in an Organized Health Care Education/Training Program
DX: M35.2 Behcet's disease (principal); Z79.899 Other long term (current) drug therapy
CPT/HCPCS: 99214

== ENCOUNTER → 2024-02-25 11:19 | Outpatient (BNVA) | payer MEDICAID, SELFPAY | PROVIDERS: PCP Family Medicine; Visit Provider Student in an Organized Health Care Education/Training Program | DX: M35.2 Behcet's disease (principal); Z79.899 Other long term (current) drug therapy | CPT/HCPCS: 99212 ==